=== PATIENT | male | born 1950 | race Caucasian/White ===

== ENCOUNTER 2023-06-19 13:17 | Observation (INO) | payer MEDICARE, MEDICAID, SELFPAY ==
[2023-06-19] VITALS (10 sets, daily range): BP systolic 112–162; BP diastolic 66–92; PULSE 75–87; RESP 14–18; TEMP 36.4–36.9; O2SAT 97–100; BMI 16.6; BMI 19.7
--- NOTE | 2023-06-19 13:28 | XR_ITS ---
FINAL REPORT CLINICAL HISTORY: dyspnea COMPARISON: 08/12/2022 FINDINGS: SINGLE-VIEW CHEST The heart size is normal. The mediastinum is normal. There are mild bibasilar opacities, left greater than right which may represent pneumonia or atelectasis. There is no pneumothorax. IMPRESSION: Bibasilar opacities, may represent pneumonia or atelectasis. Reviewed, Interpreted and Dictated by Jose M Maya III, MD Transcribed by Dariela Forte Authenticated and [facility]
--- NOTE | 2023-06-19 13:29 | HMH.EDGENADL ---
Discharge Plan Disposition Chief Complaint: Recheck/Abnormal Lab/Rx Referrals Follow up/Referrals: Provider,Hannah, [Primary Care Provider] - See instructions Clinical Impressions Clinical Impression: Dysphagia, Dementia Discharge ED Provider: Tawanda Sutherland General Adult HPI General Chief complaint: Recheck/Abnormal Lab/Rx Stated complaint: Unable to swallow Time Seen by Provider: 06/19/23 13:25 History of Present Illness HPI narrative: Patient is a 73-year-old male presenting from [facility] for concern for needing a G-tube. Patient is a new patient to [facility] they know almost nothing about him do not have any significant known past medical history but apparently recently had an upper GI and a swallowing study that the patient demonstrated significant aspiration in need of a G-tube for feeding. Patient was sent to the emergency department for further evaluation. Patient is nonverbal and we cannot obtain history from the patient when we do not have extensive notes on the patient to no past medical history. Related Data Allergies Allergy/AdvReac Type Severity Reaction Status Date / Time gabapentin Allergy Verified 06/19/23 14:15 [facility] Disclaimer: The information contained in this section may have been updated after the patient was seen, as this information can be updated by other users. Social History Smoking Status: Unknown if ever smoked alcohol intake: never current occupational status: other Travel in the last 8 weeks: None ROS Obtained: Yes All systems reviewed & no additional complaints except as documented Physical Exam General General appearance: alert and other Comment: Nonverbal mouth open wide able to look at me slurred speech contracted bilateral upper extremities cachectic in appearance Respiratory Respiratory exam: Absent respiratory distress Cardiovascular Cardiovascular exam: Absent tachycardia Neurological Exam Neurological exam: Present alert and other (Contracted throughout); Absent oriented X3 Medical Decision Making Bob Inquiry Pt receiving controlled substance: No Vital Signs: 06/19/23 13:31 06/19/23 13:30 06/19/23 14:00 Temperature 98.0 F Temperature Source Oral Pulse Rate 75 80 Pulse Rate [Left] 75 Respiratory Rate 16 Blood Pressure 128/83 132/83 Blood Pressure [Right Arm] 128/83 Blood Pressure Mean 94 93 Blood Pressure Mean [Right Arm] 98 02 Sat by Pulse Oximetry 99 99 100 Lab Data Lab results reviewed: Yes I reviewed the patient's lab results. Lab Results 06/19/23 13:20: WBC 5.0, RBC 4.12 L, Hgb 12.7 L, Hct 38.9 L, MCV 94.5 H, MCH 30.9, MCHC 32.7, RDW 12.2, Plt Count 191, MPV 8.8, Neut % (Auto) 63.4, Lymph % (Auto) 27.7, Nance % (Auto) 6.8, Eos % (Auto) 1.8, Baso % (Auto) 0.3, Neut # (Auto) 3.2, Lymph # (Auto) 1.4, Nance # (Auto) 0.3, Eos # (Auto) 0.1, Baso # (Auto) 0.0, Sodium 136, Potassium 4.1, Chloride 92 L, Carbon Dioxide 38 H, Anion Gap 10.1, BUN 11, Creatinine 0.40 L, Estimated Creat Clear 41, Estimated GFR 210, Est GFR ( Amer) 254, Glucose 77, Calcium 8.8, Phosphorus 3.3, Magnesium 1.5 L, Total Bilirubin 0.4, AST 47, ALT 20, Alkaline Phosphatase 71, Total Protein 7.4, Albumin 4.1, Globulin 3.3 H, Albumin/Globulin Ratio 1.2 06/19/23 13:20 06/19/23 13:20 Orders (Tests/Meds): ED MEDICATIONS Discontinued Medications Generic Name Dose Route Start Last Admin Trade Name Freq PRN Reason Stop Dose Admin Lactated Ringer's 1,000 mls @ 999 mls/hr 06/19/23 13:30 06/19/23 14:09 Lactated Ringer's 1000 Ml Bag IV 06/19/23 14:30 999 mls/hr .Q1H1M JUDY Administration ORDERS Category Date Time Status CXR --portable [XR chest portable] Stat Exams 06/19/23 13:28 Taken CBC w/Auto Diff [Complete Blood Count Auto Diff] Stat Lab 06/19/23 13:20 Completed CMP [Comprehensive Metabolic Panel] Stat Lab 06/19/23 13:20 Completed Magnesium Stat Lab 0
[2023-06-19 13:44] LABS: Basophils % 0.3 % (0.1-2.0); Eosinophils # 0.1 K/mm3 (0.0-0.4); Eosinophils % 1.8 % (0.1-12.0); Hematocrit 38.9 % (42.0-52.0); Hemoglobin 12.7 g/dL (14.1-18.0); Lymphocytes # 1.4 K/mm3 (0.7-4.5); Lymphocytes % 27.7 % (10-50); Mean Corpuscular HGB Conc 32.7 g/dL (31.8-35.4); Mean Corpuscular Hemoglobin 30.9 pg (27.0-31.2); Mean Corpuscular Volume 94.5 fl (80-94); Mean Platelet Volume 8.8 fl (7.4-10.4); Monocytes # 0.3 K/mm3 (0.1-1.0); Monocytes % 6.8 % (1.7-9.3); Neutrophils # 3.2 K/mm3 (1.8-7.8); Neutrophils % 63.4 % (37.0-80.0); Platelet Count 191 K/mm3 (142-424); Red Blood Count 4.12 M/mm3 (4.60-6.20); Red Cell Distribution Width 12.2 % (11.5-17.5)
--- NOTE | 2023-06-19 13:45 | ECG_ITS ---
APPROVED REPORT Exam: Resting ECG HR:77 bpm ECG Measurements Heart Rate 77 AXES NH 165 P 64 QRSd 81 QRS 67 QT 351 T 67 QTc 383 Conclusion SINUS RHYTHM NONSPECIFIC T-WAVE ABNORMALITY BORDERLINE ECG UNCONFIRMED REPORT Electronically signed by : Dipesh Cheek MD 06/19/2023 18:31:05
--- NOTE | 2023-06-19 13:45 | PC.NURSE ---
spoke with sunitha from [facility] . she is going to fax medical information about pt.
[2023-06-19 13:49] LABS: Alanine Aminotransferase 20 U/L (12-78); Albumin Level 4.1 g/dl (3.5-5.0); Albumin/Globulin Ratio 1.2 (1.1-1.8); Alkaline Phosphatase 71 U/L (38-126); Anion Gap 10.1 mEq/L (5-15); Aspartate Amino Transferase 47 U/L (17-59); Bilirubin,Total 0.4 mg/dl (0.2-1.3); Blood Urea Nitrogen 11 mg/dl (9-20); Calcium 8.8 mg/dl (8.4-10.2); Carbon Dioxide 38 mmol/L (22.0-30.0); Chloride 92 mmol/L (98-107); Creatinine Clearance Estimated 41 mL/min (50-200); Estimated Glomerular Filt Rate 210 ml/min (>60); GFR (African American) 254 ML/MIN (>60); Globulin 3.3 g/dL (1.3-3.2); Glucose 77 mg/dl (74-100); Magnesium 1.5 mg/dl (1.6-2.3); Phosphorous 3.3 mg/dl (2.5-4.5); Potassium 4.1 mmoL/L (3.5-5.1); Sodium 136 mmol/L (136-145); Total Protein,Serum 7.4 g/dl (6.3-8.2)
--- NOTE | 2023-06-19 13:51 | PC.NURSE ---
Called [facility], medical records are sending records from most recent visit from 03/10/23
--- NOTE | 2023-06-19 13:52 | PC.NURSE ---
Called pt's past [facility]p, [facility], to receive records from his stay there. This includes his recent barium swallow tests.
--- NOTE | 2023-06-19 14:36 | PC.NURSE ---
pt comes into ER with watch, hat, shoes, white t shirt, patterned shirt. pt has black wallet with 80$ in it, all 20$ bills. verified with tabatha driscoll rn.
--- NOTE | 2023-06-19 14:59 | PC.NURSE ---
CARE MANAGEMENT NOTIFIED OF ADMISSION
--- NOTE | 2023-06-19 15:34 | SW/DCPLANNER ---
Addendum entered by Pilar Whitt 06/20/23 09:53: Per Angela (LISY) jordan/ [facility] patient can return back to [facility]/ Hospice services. I will update Chyna ortega/ Hospice. Addendum entered by Pilar Whitt 06/20/23 09:23: Per he has spoke with patient's family and they have requested that patient return back to [facility] w/ Hospice services. Patient information has been faxed to [facility]. I will follow up with Chyna at Hospice once information is reviewed. Patient will discharge back to [facility] today: I have updated Angela ortega/ Kelly. Original Note: Sparkle ortega/ [facility] stated that this patient currently resides at their facility and did confirm that they will accept patient back once medically stable for discharge (even if GTube is placed).
--- NOTE | 2023-06-19 15:41 | PC.NURSE ---
Cleaned patient and changed patient's brief with Janet CASTILLO and readjusted patient in bed. Call estrada within reach of patient.
--- NOTE | 2023-06-19 16:23 | PC.NURSE ---
arrived by stretcher from ED
--- NOTE | 2023-06-19 16:36 | EXP.HP ---
History of Present Illness *Admission Date: 06/19/23 *Reason for visit:: dysphagia *History of present illness: Mr. Okeefe is a 73-year-old male with advanced Parkinson's, dementia, hypertension, seizure disorder. He recently moved to [facility] today from [facility] in [place]. He had been living in his long term for 15 years. Became more more difficult for him to eat and so decision was made to transfer him to [facility] for further care. On arrival to the ER, the ER was informed that patient was transferred for G-tube placement. Patient is nonverbal, unable to give history. ER able to obtain notes from [facility] and [facility] in regard to previous workup. Patient had a failed modified barium swallow study 1 month ago. Labs relatively unremarkable with mild hypomagnesemia. No signs of infection. Medicine was consulted for further management and assistance with goals of care and possible G-tube placement. On arrival to the floor, patient is hemodynamically stable, on room air, afebrile. Unable to obtain significant history. Appears very stiff in bed. Contacted brother who states patient has been in a wheelchair for some time. Living in his long term for about 15 years. Contacted patient's POA (his brother) who is currently in the hospital himself. Discussed patient's current condition with patient's brother and his . Discussed options of feeding tube placement versus possibly hospice. At this time the patient is unable to tolerate p.o. intake. G-tube for nutrition, medications, life-prolonging treatment is one avenue versus comfort, quality, allowing for pleasure feeds and proceeding with hospice would be the second Avenue. Patient's family would like to consider options overnight and we will reconvene in the morning via phone to discuss decision of how to proceed. [facility] Disclaimer: The information contained in this section may have been updated after the patient was seen, as this information can be updated by other users. Medical History (Updated 06/19/23 @ 17:24 by Pravin Gee MD) Affective psychosis Alzheimer disease Developmental delay, mild Diabetes GERD (gastroesophageal reflux disease) Hyperlipemia Hypertensive disorder Hyponatremia Impulse control disorder in adult Mood disorder Surgical History H/O right hemicolectomy History of dental surgery Social History Smoking Status: Unknown if ever smoked alcohol intake: never current occupational status: other Travel in the last 8 weeks: None Review of Systems Review of Systems Review of systems (narrative): 14 point review of systems performed, pertinent positives and negatives as per HPI Meds Home Medications and Allergies Home Medications Medication Instructions Recorded Confirmed Type acetaminophen 325 mg tablet 325 mg PO QID PRN Pain 06/19/23 06/19/23 History ammonium lactate 12 % topical cream 1 applic topical BID skin 06/19/23 06/19/23 History irritation buspirone 10 mg tablet 10 mg PO BID mood 06/19/23 06/19/23 History carbidopa 25 mg-levodopa 100 mg 1 tab PO BID alzheimer's disease 06/19/23 06/19/23 History tablet citalopram 20 mg tablet 20 mg PO DAILY Depression 06/19/23 06/19/23 History divalproex 500 mg tablet,delayed 500 mg PO BID seizure 06/19/23 06/19/23 History release ketoconazole 2 % topical cream 1 applic topical DAILY skin issues 06/19/23 06/19/23 History lisinopril 10 mg tablet 10 mg PO DAILY High Blood Pressure 06/19/23 06/19/23 History memantine 28 mg capsule 28 mg PO DAILY memory 06/19/23 06/19/23 History sprinkle,extended release 24hr olanzapine 10 mg tablet 10 mg PO DAILY mood 06/19/23 06/19/23 History olanzapine 5 mg tablet 5 mg PO DAILY mood 06/19/23 06/19/23 History rivastigmine 13.3 mg/24 hour 1 patch transdermal DAILY dementia
--- NOTE | 2023-06-19 17:33 | XR_ITS ---
PROCEDURE INFORMATION: Exam: XR Chest Exam date and time: 06/19/2023 5:50 PM Age: 73 years old Clinical indication: Device placement; Ng tube; Additional info: Verify ng tube placement TECHNIQUE: Imaging protocol: Radiologic exam of the chest. Views: 1 view. COMPARISON: CR XR CHEST PORTABLE 06/19/2023 1:28 PM FINDINGS: Tubes, catheters and devices: There is an enteric tube place, tip and side port project over the region of the stomach. Lungs: Unremarkable. No consolidation. Pleural spaces: Unremarkable. No pleural effusion. No pneumothorax. Heart/Mediastinum: Unremarkable. No cardiomegaly. Bones/joints: Unremarkable. IMPRESSION: Radiographically appropriate position of enteric tube.
--- NOTE | 2023-06-19 17:39 | PC.NURSE ---
order entered for chest xray to verify placement. awaiting xray results.
--- NOTE | 2023-06-19 18:21 | PC.NURSE ---
Patient admitted from the emergency room. NG placed; no pain reported at this time.
--- NOTE | 2023-06-19 19:00 | PC.NURSE ---
Sailaja Kellogg RN and myself asked patient several times if we could lock his wallet in the blueprint tracer the room but he refused. He currently has it in his right hand while lying the bed.
--- NOTE | 2023-06-19 21:11 | DIET.NUTRFU ---
RD consulted to initiate TF via NG to provide nutrition. Patient unable to take oral intake d/t aspiration risk. Was admitted from [facility] for PEG placement family is deciding on PEG vs hospice. Spoke to [facility], limited hx available. [facility] has Osmolite 1.5 available, will start Osmolite 1.2 to meet nutritional needs of 1700-1800kcal, 75-80gm protein has increased needs d/t skin breakdown and low BMI. Ordered minimal flush, has IVF running for hydration.
[2023-06-19 21:29] LABS: POC Glucose,Bedside 101 (70-110)
[2023-06-20] VITALS: BP 131/80; PULSE 76; RESP 14; TEMP 36.6; O2SAT 98
[2023-06-20 04:00] VITALS: BP 142/87; PULSE 83; RESP 16; TEMP 36.7; O2SAT 99; BMI 20.4
[2023-06-20 05:59] LABS: POC Glucose,Bedside 84 (70-110)
[2023-06-20 07:15] LABS: Basophils % 0.2 % (0.1-2.0); Eosinophils # 0.1 K/mm3 (0.0-0.4); Eosinophils % 2.9 % (0.1-12.0); Hemoglobin 11.7 g/dL (14.1-18.0); Lymphocytes # 1.1 K/mm3 (0.7-4.5); Lymphocytes % 29.2 % (10-50); Mean Corpuscular HGB Conc 32.5 g/dL (31.8-35.4); Mean Corpuscular Hemoglobin 30.5 pg (27.0-31.2); Mean Corpuscular Volume 93.9 fl (80-94); Mean Platelet Volume 8.7 fl (7.4-10.4); Monocytes # 0.3 K/mm3 (0.1-1.0); Neutrophils # 2.2 K/mm3 (1.8-7.8); Neutrophils % 59.8 % (37.0-80.0); Platelet Count 184 K/mm3 (142-424); Red Blood Count 3.84 M/mm3 (4.60-6.20); Red Cell Distribution Width 12.1 % (11.5-17.5); White Blood Count 3.6 K/mm3 (4.8-10.8)
[2023-06-20 07:23] LABS: Chloride 95 mmol/L (98-107); Potassium 4.1 mmoL/L (3.5-5.1); Sodium 134 mmol/L (136-145)
[2023-06-20 07:25] LABS: Alanine Aminotransferase 24 U/L (12-78); Alkaline Phosphatase 64 U/L (38-126); Aspartate Amino Transferase 36 U/L (17-59); Bilirubin,Total 0.7 mg/dl (0.2-1.3); Blood Urea Nitrogen 7 mg/dl (9-20); Creatinine Clearance Estimated 58 mL/min (50-200); Estimated Glomerular Filt Rate 162 ml/min (>60); GFR (African American) 196 ML/MIN (>60)
[2023-06-20 07:26] LABS: Albumin Level 3.2 g/dl (3.5-5.0); Albumin/Globulin Ratio 1.1 (1.1-1.8); Anion Gap 10.1 mEq/L (5-15); Calcium 8.9 mg/dl (8.4-10.2); Carbon Dioxide 33 mmol/L (22.0-30.0); Globulin 2.9 g/dL (1.3-3.2); Glucose 79 mg/dl (74-100); Magnesium 1.5 mg/dl (1.6-2.3); Phosphorous 3.4 mg/dl (2.5-4.5); Total Protein,Serum 6.1 g/dl (6.3-8.2)
[2023-06-20 07:28] LABS: Activated Partial Thrombo Time 34.2 seconds (22.8-30.6); INR 1.05 (0.9-1.1); Prothrombin Time 11.3 seconds (10.1-12.5)
[2023-06-20 07:43] LABS: Hemoglobin A1C 5.1 % (4.0-6.0)
[2023-06-20 07:53] LABS: Thyroid Stimulating Hormone 2.81 uIU/mL (0.465-4.68)
[2023-06-20 08:00] VITALS: BP 134/71; PULSE 87; RESP 20; TEMP 37.3; O2SAT 95; O2SAT 97
--- NOTE | 2023-06-20 08:08 | DIET.NUTRFU ---
Addendum entered by Marta Flynn RD, LD 06/20/23 12:01: Family has decided to sign on with hospice, he will discharge today with comfort feedings as facility feels appropriate Original Note: Spoke with nursing about status of TF. TF has not been started d/t potential for surgical placement of PEG tube today. Will continue to monitor patient's status.
--- NOTE | 2023-06-20 08:14 | HMH.PHAINT1 ---
Pharmacy Intervention Comments: Medication history complete, all medications confirmed with facility list and fill history. - Jayshree Shen, PharmD Candidate 2023
--- NOTE | 2023-06-20 08:14 | EXP.SURG.CON ---
History of Present Illness *Admission Date: 06/19/23 *History of present illness: Unable to obtain history from the patient. History is obtained from the medical record. Mr. Okeefe is a 73-year-old male with advanced Parkinson's, dementia, hypertension, seizure disorder who recently moved to [facility] today from [facility] in [place]. He had been living in his [facility] for 15 years. Became more more difficult for him to eat and so decision was made to transfer him to [facility] for further care. Several hours after arriving at the [facility] he was sent to the emergency department to make arrangements for a PEG tube placement apparently he was evaluated in the emergency department with very limited initial information. On arrival the ER was informed that patient was transferred for G-tube placement. Patient is nonverbal, unable to give history. ER able to obtain notes from [facility] and [facility] in regard to previous workup. Patient had reportedly a failed modified barium swallow study 1 month ago. Medicine was consulted for further management and assistance with goals of care and possible G-tube placement. After additional investigative efforts by the ER staff it became apparent that the patient had been requiring increasing care and administration of food by the staff at his [facility] and therefore was admitted as a resident at [facility]. Shortly thereafter he was sent to the emergency department for gastrostomy tube. Patient was admitted to the hospitalist service. Hospitalist contacted patient's POA (his brother) who is currently in the hospital himself. Discussed patient's current condition with patient's brother and his . Discussed options of feeding tube placement versus possibly hospice. At this time the patient is unable to tolerate p.o. intake. G-tube for nutrition, medications, life-prolonging treatment is one avenue versus comfort, quality, allowing for pleasure feeds and proceeding with hospice would be the second Avenue. Patient's family would like to consider options overnight and we will reconvene in the morning via phone to discuss decision of how to proceed. Patient has apparently previously undergone right hemicolectomy. Previous nature and details and indications of this are unavailable. [facility] Disclaimer: The information contained in this section may have been updated after the patient was seen, as this information can be updated by other users. Medical History Affective psychosis Alzheimer disease Developmental delay, mild Diabetes GERD (gastroesophageal reflux disease) Hyperlipemia Hypertensive disorder Hyponatremia Impulse control disorder in adult Mood disorder Surgical History H/O right hemicolectomy History of dental surgery Family History (Updated 06/19/23 @ 17:58 by Adore May RN) No significant family history Social History (Updated 06/19/23 @ 17:59 by Adore May RN) Smoking Status: Unknown if ever smoked alcohol intake: never current occupational status: other Travel in the last 8 weeks: None Meds Home Medications and Allergies Home Medications Medication Instructions Recorded Confirmed Type acetaminophen 325 mg tablet 325 mg PO QID PRN Pain 06/19/23 06/19/23 History ammonium lactate 12 % topical cream 1 applic topical BID skin 06/19/23 06/19/23 History irritation on feet buspirone 10 mg tablet 10 mg PO BID mood 06/19/23 06/19/23 History carbidopa 25 mg-levodopa 100 mg 1 tab PO BID tremors 06/19/23 06/19/23 History tablet citalopram 20 mg tablet 20 mg PO DAILY Depression 06/19/23 06/19/23 History divalproex 500 mg tablet,delayed 500 mg PO BID mood 06/19/23 06/19/23 History release ketoconazole 2 % topical cream 1 applic topical DAILY PRN skin 06/19/23 08
--- NOTE | 2023-06-20 09:00 | PC.NURSE ---
NG tube removed.
--- NOTE | 2023-06-20 10:09 | EXP.DC.SUM ---
General Admission date:: 06/19/23 Discharge date: 06/20/23 HPI HPI HPI: Unable to obtain history from the patient. History is obtained from the medical record. Mr. Okeefe is a 73-year-old male with advanced Parkinson's, dementia, hypertension, seizure disorder who recently moved to [facility] today from [facility] in [place]. He had been living in his skilled nursing for 15 years. Became more more difficult for him to eat and so decision was made to transfer him to [facility] for further care. Several hours after arriving at the [facility] he was sent to the emergency department to make arrangements for a PEG tube placement apparently he was evaluated in the emergency department with very limited initial information. On arrival the ER was informed that patient was transferred for G-tube placement. Patient is nonverbal, unable to give history. ER able to obtain notes from [facility] and [facility] in regard to previous workup. Patient had reportedly a failed modified barium swallow study 1 month ago. Medicine was consulted for further management and assistance with goals of care and possible G-tube placement. After additional investigative efforts by the ER staff it became apparent that the patient had been requiring increasing care and administration of food by the staff at his skilled nursing and therefore was admitted as a resident at [facility]. Shortly thereafter he was sent to the emergency department for gastrostomy tube. Patient was admitted to the hospitalist service. Hospitalist contacted patient's POA (his brother) who is currently in the hospital himself. Discussed patient's current condition with patient's brother and his . Discussed options of feeding tube placement versus possibly hospice. At this time the patient is unable to tolerate p.o. intake. G-tube for nutrition, medications, life-prolonging treatment is one avenue versus comfort, quality, allowing for pleasure feeds and proceeding with hospice would be the second Avenue. Patient's family would like to consider options overnight and we will reconvene in the morning via phone to discuss decision of how to proceed. Patient has apparently previously undergone right hemicolectomy. Previous nature and details and indications of this are unavailable. Hospital Course Hospital Course Hospital Course: Mr. Okeefe is a 73-year-old male with Parkinson's, dementia, hypertension, who presented to [facility] today for admission from his previous skilled nursing. On arrival, given his failure to pass bedside swallow study and recent failure of modified barium study, he was sent to the ER for placement of G-tube. On arrival to the ER, patient is hemodynamically stable. Labs essentially normal. Noted to have low magnesium that was replaced. ER consulted medicine for admission and goals of care discussion to determine appropriateness for possible G-tube placement. Had extensive discussion with patient's brother who is his legal guardian and [id number]. They discussed the case with other family members overnight and determination was made to not proceed with placement of a G-tube but rather proceed with hospice care and allow treatment to be focused on comfort and quality. Stable for discharge back to [facility] to continue palliative care and allow for feeding. Problems addressed as follows: Dysphagia -Charts obtained from [facility], reviewed showing failure of modified barium study approximately 1 month ago. Surgery was consulted to assist with possible G-tube placement. After further discussion with family, decision made to not pursue G-tube placement. Will proceed with hospice care. Allow for comfort/pleasure feeds. Parkinson's disease Alzheimer's dementia Seizure disorder -Unclear the last time patient had his medications. Resumed home medications for his chronic conditions. Patient's Parkinson's
[2023-06-20 10:53] LABS: POC Glucose,Bedside 98 (70-110)
--- NOTE | 2023-06-20 12:00 | PC.NURSE ---
Report called to oscar ignacio rn at [facility].
--- NOTE | 2023-06-20 12:11 | HMH.PTEV ---
Physical Therapy Evaluation Rehab PT IP Evaluation Start: 06/19/23 17:39 Freq: ONCE Status: Active Protocol: Document 06/20/23 09:00 DELFIN (Rec: 06/20/23 12:11 NICOLÁSREJI [id number]) Subjective/History History History 73 yowm adm to [facility] with dysphagia and poss PEG placement. Decision was made with family to not undergo PEG and to return to SNF with hospice. Pt has hx of severe parkinson's disease with rigidity and tremors. Subjective Subjective Pt with no c/o this am, remains somewhat confused. Rehab PT IP Eval Objective Appearance Patient Behavior Appropriate Patient Orientation Person Difficulty following instructions none Speech Pattern Garbled Ambulation Patient Able to Ambulate No Balance Ability to Arise Able, uses arms to help Sitting Balance Steady, safe Standing Balance Steady, wide stance Dynamic Sitting Balance Ability Fair Dynamic Standing Balance Ability Fair Transfers Bed Transfer Ability Minimal x 1 (25% assist) Chair Transfer Ability Minimal x 1 (25% assist) Sit to Stand Bed Transfer Ability Minimal x 1 (25% assist) Sit to Stand Chair Transfer Ability Minimal x 1 (25% assist) Rehab PT IP prob,goals,plan Problems Date of Evaluation: 06/20/23 Discharge Plan PT Discharge Plan Pt is returning to SNF with hospice and is appropriate to d/c once medically stable. G -code Required No Eval Complexity Eval Charge Codes 77245 - High Complexity PHYSICIAN CERTIFICATION: I certify the specified therapy services for Godfrey Okeefe are required, authorized, and reviewed every 30 days.
--- NOTE | 2023-06-20 12:53 | [facility].OTEV ---
OT Inpatient Evaluation Rehab OT IP Evaluation Start: 06/19/23 17:38 Freq: ONCE Status: Discharge Protocol: Document 06/20/23 12:11 ASHLY (Rec: 06/20/23 12:52 ASHLY [id number]) Rehab OT IP Assessment Subjective History Mr. Okeefe is a 73-year-old male with advanced Parkinson's , dementia, hypertension, seizure disorder. He recently moved to [facility] today from [facility] in [place]. He had been living in his alf for 15 years. Became more more difficult for him to eat and so decision was made to transfer him to [facility] for further care. On arrival to the ER, the ER was informed that patient was transferred for G-tube placement. Patient is nonverbal, unable to give history. ER able to obtain notes from [facility] and [facility] in regard to previous workup. Patient had a failed modified barium swallow study 1 month ago. Labs relatively unremarkable with mild hypomagnesemia. No signs of infection. Medicine was consulted for further management and assistance with goals of care and possible G- tube placement. On arrival to the floor, patient is hemodynamically stable, on room air, afebrile. Unable to obtain significant history. Appears very stiff in bed. Contacted brother who states patient has been in a wheelchair for some time. Living in his alf for about 15 years. Contacted patient's POA (his brother) who is currently in the hospital himself. Discussed patien
[2023-06-21 08:34] LABS: Prealbumin 20 mg/dL (9-32)
== END 2023-06-20 12:46 ==
LOC: ER 14:03 → 2ND 16:25
PROVIDERS: Admitting Provider Internal Medicine Adolescent Medicine; Emergency Provider Student in an Organized Health Care Education/Training Program; PCP Emergency Medicine; Visit Provider Internal Medicine Adolescent Medicine
DX: R13.10 Dysphagia, unspecified (principal); G20 Parkinson's disease; I10 Essential (primary) hypertension; E11.9 Type 2 diabetes mellitus without complications; G30.9 Alzheimer's disease, unspecified; F02.80 Dementia in other diseases classified elsewhere, unspecified severity, without behavioral disturbance, psychotic disturbance, mood disturbance, and anxiety; L89.159 Pressure ulcer of sacral region, unspecified stage; E43 Unspecified severe protein-calorie malnutrition; Z68.20 Body mass index [BMI] 20.0-20.9, adult; Z79.899 Other long term (current) drug therapy
CPT/HCPCS: G0378; 36415; 71045; 80053; 82962; 83036; 83735; 84100; 84134; 84443; 85025; 85610; 85730; 93005; 97163; 97165; 99285; J3475

== ENCOUNTER 2025-02-26 08:21 | Outpatient (CLI) | payer MEDICARE, MEDICAID, SELFPAY ==
[2025-02-26 08:32] LABS: Glucose,Fasting 110 mg/dl (74-100)
== END 2025-02-26 23:59 | disposition home or self-care (01) ==
PROVIDERS: PCP Family Medicine; Visit Provider Family Medicine
DX: E11.9 Type 2 diabetes mellitus without complications (principal)
CPT/HCPCS: 36415; 82947

== ENCOUNTER 2025-03-07 19:51 | Outpatient (CLI) | payer MEDICARE, MEDICAID, SELFPAY ==
[2025-03-07 20:12] LABS: Microscopic, Urine URINE MICROSCOPIC (MICROSCOPIC)
[2025-03-07 20:17] LABS: Appearance,Urine CLEAR (Clear); Bilirubin,Urine Negative (Negative); Blood, Urine TRACE-I (Negative); Color,Urine YELLOW (Yellow); Glucose,Urine (UA) TRACE (Negative); Ketones,Urine Negative (Negative); Leukocyte Esterase,Urine 3+ (Negative); Nitrate,Urine Negative (Negative); PH,Urine 7.5 (5.0-8.5); Protein,Urine Negative (Negative); Specific Gravity, Urine 1.015 (1.005-1.030); Urobilinogen,Urine 0.2 EU/dl (0.2)
[2025-03-07 20:28] LABS: Bacteria,Urine 4+ /lpf
== END 2025-03-07 23:59 | disposition home or self-care (01) ==
LOC: LAB.DROPOF 19:52
PROVIDERS: PCP Nurse Practitioner Family; Visit Provider Nurse Practitioner Family
DX: R10.9 Unspecified abdominal pain (principal); N39.0 Urinary tract infection, site not specified; B95.1 Streptococcus, group B, as the cause of diseases classified elsewhere
CPT/HCPCS: 81001; 87086; 87088; 87186

== ENCOUNTER 2025-03-08 07:45 | Outpatient (CLI) | payer MEDICARE, MEDICAID, SELFPAY ==
[2025-03-08 08:06] LABS: Basophils % 0.4 % (0.1-2.0); Eosinophils # 0.3 Kmm3 (0.0-0.4); Eosinophils % 4.3 % (0.1-12.0); Hematocrit 38.9 % (42.0-52.0); Hemoglobin 13.2 g/dL (14.1-18.0); Lymphocytes # 1.6 K/mm3 (0.7-4.5); Lymphocytes % 24.3 % (10-50); Mean Corpuscular HGB Conc 33.9 g/dL (31.8-35.4); Mean Corpuscular Hemoglobin 29.4 pg (27.0-31.2); Mean Corpuscular Volume 86.6 fl (80-94); Mean Platelet Volume 10.5 fl (7.4-10.4); Monocytes # 0.6 K/mm3 (0.1-1.0); Monocytes % 9.1 % (1.7-9.3); Neutrophils # 4.1 K/mm3 (1.8-7.8); Neutrophils % 61.3 % (37.0-80.0); Nucleated Red Blood Cells # 0 10^3/uL; Nucleated Red Blood Cells % 0 %; Platelet Count 211 K/mm3 (142-424); Red Blood Count 4.49 M/mm3 (4.60-6.20); Red Cell Distribution Width 11.9 % (11.5-17.5); Red Cell Distribution Width-SD 37.9 fL; White Blood Count 6.7 K/mm3 (4.8-10.8)
[2025-03-08 08:23] LABS: Chloride 95 mmol/L (98-107)
[2025-03-08 08:24] LABS: Potassium 4.5 mmoL/L (3.5-5.1); Sodium 132 mmol/L (136-145)
[2025-03-08 08:27] LABS: Anion Gap 13.5 mEq/L (5-15); Blood Urea Nitrogen 5 mg/dl (9-20); Calcium 8.9 mg/dl (8.4-10.2); Carbon Dioxide 28 mmol/L (22.0-30.0); Estimated Glomerular Filt Rate 162 ml/min (>60); GFR (African American) 196 ML/MIN (>60); Glucose 111 mg/dl (74-100)
== END 2025-03-08 23:59 | disposition home or self-care (01) ==
PROVIDERS: PCP Nurse Practitioner Family; Visit Provider Nurse Practitioner Family
DX: Z13.220 Encounter for screening for lipoid disorders (principal); E11.9 Type 2 diabetes mellitus without complications
CPT/HCPCS: 36415; 80048; 85025

== ENCOUNTER 2025-03-31 16:50 | Outpatient (CLI) | payer MEDICARE, MEDICAID, SELFPAY ==
[2025-03-31 17:21] LABS: Microscopic, Urine URINE MICROSCOPIC (MICROSCOPIC)
[2025-03-31 20:18] LABS: Bilirubin,Urine Negative (Negative); Blood, Urine 2+ (Negative); Color,Urine YELLOW (Yellow); Glucose,Urine (UA) TRACE (Negative); Ketones,Urine Negative (Negative); Leukocyte Esterase,Urine 3+ (Negative); Nitrate,Urine POSITIVE (Negative); Protein,Urine 2+ (Negative); Specific Gravity, Urine 1.015 (1.005-1.030); Urobilinogen,Urine 0.2 EU/dl (0.2)
[2025-03-31 20:29] LABS: Appearance,Urine Cloudy (Clear)
[2025-03-31 21:26] LABS: Bacteria,Urine 4+ /lpf; Squamous Epithelial Cell,Urine Occasional #/hpf (0-5); WBC,Urine TNTC #/hpf (0-3)
== END 2025-03-31 23:59 | disposition home or self-care (01) ==
LOC: LAB.DROPOF 16:52
PROVIDERS: PCP Family Medicine; Visit Provider Family Medicine
DX: N39.0 Urinary tract infection, site not specified (principal); B96.20 Unspecified Escherichia coli [E. coli] as the cause of diseases classified elsewhere
CPT/HCPCS: 81001; 87086; 87088; 87186

== ENCOUNTER 2025-04-01 06:02 | Inpatient (IN) | payer MEDICARE, MEDICAID, SELFPAY ==
[2025-04-01] VITALS (12 sets, daily range): BP systolic 98–159; BP diastolic 51–88; PULSE 66–114; RESP 16–27; TEMP 36.6–37.8; O2SAT 2–99; BMI 22.6
--- NOTE | 2025-04-01 06:00 | ECG_ITS ---
APPROVED REPORT Exam: Resting ECG HR:112 bpm ECG Measurements Heart Rate 112 AXES OR 156 P 42 QRSd 77 QRS 45 QT 296 T 56 QTc 362 Conclusion SINUS TACHYCARDIA NONSPECIFIC T-WAVE ABNORMALITY ABNORMAL RHYTHM ECG UNCONFIRMED REPORT Electronically signed by : STEPHANIE GANDHI, 04/04/2025 06:55:35
--- NOTE | 2025-04-01 06:04 | XR_ITS ---
PROCEDURE INFORMATION: Exam: XR Chest Exam date and time: 04/01/2025 6:24 AM Age: 74 years old Clinical indication: Fever; Additional info: Fever, hypoxia TECHNIQUE: Imaging protocol: Radiologic exam of the chest. Views: 1 view. COMPARISON: CR XR CHEST PORTABLE 06/19/2023 5:50 PM FINDINGS: Lungs: There is nonspecific streaking in the left lung base, consistent with atelectasis or pneumonia. Pleural spaces: There are no pleural effusions present. Heart/Mediastinum: Unremarkable. No cardiomegaly. Vasculature: The vasculature demonstrates diffuse moderate atherosclerotic calcification. There is no vascular redistribution to suggest congestive failure. Bones/joints: Moderate degenerative changes are seen in both shoulders. There is dense calcification of the left coracoclavicular ligament. No dislocation of the left AC joint is observed. A right convex spinal curve is observed.The spine demonstrates moderate degenerative changes at multiple levels. IMPRESSION: 1. There is nonspecific streaking in the left lung base, consistent with atelectasis or pneumonia. 2. There are no pleural effusions present. 3. There is no vascular redistribution to suggest congestive failure.
[2025-04-01 06:16] LABS: VBG HCO3 24.6 mmol/L (23-30); VBG Oxygen Saturation 97.3 % (50-70); VBG PCO2 34.2 mmol/L (35-51); VBG PH 7.48 mmol/L (7.31-7.41); VBG PO2 86.7 mmol/L (28-40); VBG Total CO2 25.7 mmol/L (23-27)
[2025-04-01 06:22] LABS: Alanine Aminotransferase 17 U/L (12-78); Albumin Level 4.2 g/dl (3.5-5.0); Albumin/Globulin Ratio 1.2 (1.1-1.8); Alkaline Phosphatase 60 U/L (38-126); Anion Gap 12.9 mEq/L (5-15); Aspartate Amino Transferase 30 U/L (17-59); Bilirubin,Total 0.9 mg/dl (0.2-1.3); Blood Urea Nitrogen 14 mg/dl (9-20); Calcium 8.4 mg/dl (8.4-10.2); Carbon Dioxide 29 mmol/L (22.0-30.0); Chloride 94 mmol/L (98-107); Creatinine Clearance Estimated 64 mL/min (50-200); Estimated Glomerular Filt Rate 110 ml/min (>60); GFR (African American) 133 ML/MIN (>60); Globulin 3.6 g/dL (1.3-3.2); Glucose 183 mg/dl (74-100); Magnesium 1.8 mg/dl (1.6-2.3); Potassium 3.9 mmoL/L (3.5-5.1); Sodium 132 mmol/L (136-145); Total Protein,Serum 7.8 g/dl (6.3-8.2)
[2025-04-01 06:25] LABS: Basophils # 0.1 K/mm3 (0-0.2); Basophils % 0.4 % (0.1-2.0); Eosinophils # 0.1 Kmm3 (0.0-0.4); Eosinophils % 0.6 % (0.1-12.0); Hematocrit 36.8 % (42.0-52.0); Hemoglobin 12.6 g/dL (14.1-18.0); Immature Granulocytes # 0.09 10^3uL; Immature Granulocytes % 0.7 %; Lymphocytes # 1.5 K/mm3 (0.7-4.5); Lymphocytes % 11.7 % (10-50); Mean Corpuscular HGB Conc 34.2 g/dL (31.8-35.4); Mean Corpuscular Hemoglobin 29.6 pg (27.0-31.2); Mean Corpuscular Volume 86.6 fl (80-94); Mean Platelet Volume 10.1 fl (7.4-10.4); Monocytes # 1.3 K/mm3 (0.1-1.0); Monocytes % 9.9 % (1.7-9.3); Neutrophils # 10.1 K/mm3 (1.8-7.8); Neutrophils % 76.7 % (37.0-80.0); Nucleated Red Blood Cells # 0 10^3/uL; Nucleated Red Blood Cells % 0 %; Platelet Count 212 K/mm3 (142-424); Red Blood Count 4.25 M/mm3 (4.60-6.20); Red Cell Distribution Width 11.9 % (11.5-17.5); Red Cell Distribution Width-SD 38.1 fL; White Blood Count 13.2 K/mm3 (4.8-10.8)
[2025-04-01 06:26] LABS: Coronavirus 19, PCR Not Detected (NotDetected); Influenza A, PCR Not Detected (NotDetected); Influenza B, PCR Not Detected (NotDetected)
[2025-04-01 06:29] LABS: D-Dimer 1.11 ug/mL (0.0-0.5)
--- NOTE | 2025-04-01 06:29 | ED_ITS ---
Discharge Plan Disposition Patient Disposition: Admitted Condition: Fair Chief Complaint: Fever Prescriptions Prescriptions: No Action fluvoxamine 50 mg tablet 50 mg PO DAILY lisinopril 5 mg tablet 5 mg PO DAILY Qty: 30 2RF acetaminophen [Acetaminophen Extra Strength] 500 mg tablet 500 mg PO Q6H PRN (Reason: fever or pain) lactulose 10 gram/15 mL solution 20 g PO DAILY PRN (Reason: Constipation) ondansetron HCl 4 mg tablet 4 mg PO Q6H PRN (Reason: nausea and vomiting) ketotifen fumarate 0.025 % (0.035 %) drops 1 drp ophthalmic (eye) BID Rx Instructions: Instill 1 drop into affected eye twice a day. loratadine [Claritin] 10 mg tablet 10 mg PO DAILY melatonin 3 mg tablet 3 mg PO HS divalproex [Depakote Sprinkles] 125 mg capsule, delayed rel sprinkle 500 mg PO BID Qty: 120 11RF olanzapine 5 mg tablet 5 mg PO HS clonazepam 0.5 mg tablet 0.5 mg PO HS Qty: 30 5RF Rx Instructions: administer 30 minutes before bedtime carbidopa-levodopa 25-100 mg tablet 1 tab PO BID sennosides 8.6 mg tablet 8.6 mg PO DAILY trazodone 150 mg Tablet 150 mg PO DAILY Rx Instructions: Give at 9pm Acid Gone Antacid 95-358 mg/15 mL suspension 30 ml PO NEEDED PRN (Reason: Acid Reflux) Referrals Follow up/Referrals: Provider,ReferralMD [Primary Care Provider] - See instructions Clinical Impressions Clinical Impression: AMS (altered mental status), Sepsis, Acute UTI, Pneumonia Print Language Print Language: German Discharge ED Provider: Irineo Adams Adult HPI <Deandre Longo MD - Last Filed: 04/01/25 06:51> General Chief complaint: Fever Stated complaint: Weakness Time Seen by Provider: 04/01/25 06:04 Mode of Arrival: EMS Source of Information: EMS Description of Symptoms (Recalled from ER Triage Doc. by RN): Per [facility] staff patient has been altered for the last couple days with a low grade fever and decreased appetite and fluid intake. [facility] states they sent a urine specimen to this facility yesterday for suspicion of UTI. History of Present Illness HPI narrative: 74-year-old male with reported history of Alzheimer disease, Parkinson's, diabetes, Psychotic disorder presents for fever, hypoxia, altered mental status. Patient had a temperature of 100.4 at the nursing facility and was noted to have decreased appetite and fluid intake. Not been acting self for the last couple of days. [facility] sent to urine yesterday but they are not sure of the results. Unclear what patient's baseline mental status is. Related Data Home Medications ?Medication ?Instructions ?Recorded ?Confirmed carbidopa 25 mg-levodopa 100 mg 1 tab PO BID tremors 06/19/23 04/01/25 tablet acetaminophen 500 mg tablet 500 mg PO Q6H PRN fever or pain 10/16/23 04/01/25 (Acetaminophen Extra Strength) ketotifen fumarate 0.025 % (0.035 1 drp ophthalmic (eye) BID 10/16/23 04/01/25 %) eye drops lactulose 10 gram/15 mL oral 20 g PO DAILY PRN Constipation 10/16/23 04/01/25 solution loratadine 10 mg tablet (Claritin) 10 mg PO DAILY 10/16/23 04/01/25 melatonin 3 mg tablet 3 mg PO HS 10/16/23 04/01/25 ondansetron HCl 4 mg tablet 4 mg PO Q6H PRN nausea and vomiting 10/16/23 04/01/25 fluvoxamine 50 mg tablet 50 mg PO DAILY 11/17/24 04/01/25 olanzapine 5 mg tablet 5 mg PO HS mood 11/17/24 04/01/25 aluminum hydrox-magnesium carb 95 30 ml PO NEEDED PRN Acid Reflux 04/01/25 04/01/25 mg-358 mg/15 mL oral suspension (Acid Gone Antacid) sennosides 8.6 mg tablet 8.6 mg PO DAILY 04/01/25 04/01/25 trazodone 150 mg tablet 150 mg PO DAILY 04/01/25 04/01/25 Previous Rx's ?Medication ?Instructions ?Recorded divalproex 125 mg capsule,delayed 500 mg (4 x 125 mg) PO BID #120 02/04/24 release sprinkle (Depakote caps Sprinkles) lisinopril 5 mg tablet 5 mg PO DAILY #30 tabs 12/26/24 clonazepam 0.5 mg tablet 0.5 mg PO HS #30 tabs 02/22/25 Allergies Allergy/AdvReac Type Severity Reaction Status Date / Time gabapentin Allergy Verified 03/10/25 21:17 [facility] <Deandre Longo MD - Last Filed: 04/01/25 06:51> [facility] Disclaimer: The information contained in this section may have been updated after the patient was seen, as this information can be updated by other users. Medical History Severe protein-calorie malnutrition Iron deficiency anemia Sacral decubitus ulcer Impulse control disorder in adult Hypertensive disorder Hyponatremia Hyperlipemia GERD (gastroesophageal reflux disease) Affective psychosis Diabetes Alzheimer disease Mood disorder Surgical History History of dental surgery H/O right hemicolectomy Family History Other No significant family history Social History Smoking Status: Never smoker alcohol intake: never current occupational status: other Travel in the last 8 weeks?: None Have you lived/traveled outside [place] in past 30 days?: No Contact w/someone who lives/traveled outside US past 30 days?: No Exposure to someone with infectious disease in past 14 days?: No Do you have a fever (greater than 100.4 F or 38 C)?: No Have you tested positive for COVID-19?: No Exposed to someone with COVID-19 in past 14 days?: No Do you have a sore throat?: No Do you have a cough?: No Do you have any weakness?: Yes Do you have any diarrhea?: No Are you experiencing any unusual bleeding?: No Do you have any muscle aches/pain?: No Do you have any abdominal pain?: No Are you experiencing loss of taste or smell?: No Other Medical History Have you received the Flu Vaccine for this season: No Have you received the Pneumonia Vaccine: No <Deandre Longo MD - Last Filed: 04/01/25 06:51> ROS Obtained: Yes unobtainable due to mental status Physical Exam <Deandre Longo MD - Last Filed: 04/01/25 06:51> General General appearance: in no apparent distress Comment: decreased interactiveness Head Head exam: atraumatic and normocephalic Eye Eye exam: Present normal appearance, PERRL and EOMI ENT ENT exam: Present mucous membranes dry and normal external ear exam Neck Neck exam: Present normal inspection and full ROM Chest Chest inspection: Present normal inspection and symmetric chest wall rise; Absent tenderness Respiratory Respiratory exam: Present normal lung sounds bilaterally; Absent respiratory distress Cardiovascular Cardiovascular exam: Present normal rhythm and tachycardia Abdominal Exam Abdominal exam: Present soft and distention; Absent tenderness or guarding Extremities Exam Extremities exam: Present normal inspection; Absent edema or joint swelling Back Exam Back exam: Absent tenderness Neurological Exam Neurological exam: Present other (GCS 10) Psychiatric Psychiatric exam: Present flat affect Skin Skin exam: Present warm, dry and normal color Lymphatic Lymphatic Findings: no adenopathy Medical Decision Making <Deandre Longo MD - Last Filed: 04/01/25 06:51> Medical Records Medical records reviewed: Yes I reviewed the patient's medical records. Screening: Per USPSTF and CDC recommendations, given the prevalence of disease in our region, it is our hospital?s policy to screen for HIV and viral Hepatitis for all patients aged 18 and over and those with ongoing risk factors. Bob Inquiry Pt receiving controlled substance: No Bob was queried for this patient: No Vital Signs: 04/01/25 05:59 04/01/25 06:20 04/01/25 06:31 Temperature 100.1 F H Temperature Source Temporal Artery Scan Temporal Artery Scan Pulse Rate 109 H Pulse Rate [Left] 114 H Respiratory Rate 18 27 H Blood Pressure 143/66 H Blood Pressure [Right Arm] 131/78 Blood Pressure Mean [Right Arm] 95 Blood Pressure Source [Right Arm] Automatic Cuff Blood Pressure Position [Right Arm] Supine 02 Sat by Pulse Oximetry 96 92 L Oxygen Delivery Method Room Air 04/01/25 07:20 04/01/25 07:30 Temperature Temperature Source Pulse Rate 105 H 93 H Pulse Rate [Left] Respiratory Rate 23 20 Blood Pressure 139/86 146/78 H Blood Pressure [Right Arm] Blood Pressure Mean [Right Arm] Blood Pressure Source [Right Arm] Blood Pressure Position [Right Arm] 02 Sat by Pulse Oximetry 94 L 98 Oxygen Delivery Method Nasal Cannula Nasal Cannula Lab Data Lab results reviewed: Yes I reviewed the patient's lab results. Lab Results 04/01/25 05:44: WBC 13.2 H, RBC 4.25 L, Hgb 12.6 L, Hct 36.8 L, MCV 86.6, MCH 29.6, MCHC 34.2, RDW 11.9, Plt Count 212, MPV 10.1, Neut % (Auto) 76.7, Lymph % (Auto) 11.7, Mora % (Auto) 9.9 H, Eos % (Auto) 0.6, Baso % (Auto) 0.4, Neut # (Auto) 10.1 H, Lymph # (Auto) 1.5, Mora # (Auto) 1.3 H, Eos # (Auto) 0.1, Baso # (Auto) 0.1, D-Dimer 1.11 H, Sodium 132 L, Potassium 3.9, Chloride 94 L, Carbon Dioxide 29, Anion Gap 12.9, BUN 14, Creatinine 0.70, Estimated Creat Clear 64, Estimated GFR 110, Est GFR ( Amer) 133, Glucose 183 H, Calcium 8.4, Magnesium 1.8, Total Bilirubin 0.9, AST 30, ALT 17, Alkaline Phosphatase 60, NT-Pro-B Natriuret Pep 235, Total Protein 7.8 D, Albumin 4.2, Globulin 3.6 H, Albumin/Globulin Ratio 1.2, TSH 3.12 04/01/25 06:12: VBG pH 7.48 H, VBG pCO2 34.2 L, VBG pO2 86.7 H, VBG HCO3 24.6, VBG Total CO2 25.7, VBG O2 Saturation 97.3 H, VBG Base Excess 1.0, VBG Lactic Acid 2.0 04/01/25 06:22: SARS-CoV-2 (PCR) Not detected, Influenza A Untype (PCR) Not detected, Influenza Type B (PCR) Not detected 04/01/25 06:40: Urine Color Yellow, Urine Appearance Cloudy, Urine pH 6.0, Ur Specific Horatio 1.020, Urine Protein 2+ A, Urine Glucose (UA) Negative, Urine Ketones 1+, Urine Blood 3+ A, Urine Nitrate Positive A, Urine Bilirubin Negative, Urine Urobilinogen 1.0, Ur Leukocyte Esterase 2+ A, Urine RBC Tntc, Urine WBC Tntc, Ur Squamous Epith Cells None, Amorphous Sediment Trace, Urine Bacteria 3+ 04/01/25 05:44 04/01/25 05:44 Orders (Tests/Meds): ED MEDICATIONS Generic Name Dose Route Start Last Admin Trade Name Freq PRN Reason Stop Dose Admin Lactated Ringer's 1,000 mls @ 999 mls/hr 04/01/25 07:51 Lactated Ringer's 1000 Ml Bag IV 04/01/25 08:51 .Q1H1M ONE Sodium Phosphate 133 ml 04/01/25 08:16 04/01/25 08:32 Sodium Phos/Biphosphate Fleet 133ml Enema RC 04/01/25 08:17 133 ml ONCE ONE Administration Discontinued Medications Generic Name Dose Route Start Last Admin Trade Name Freq PRN Reason Stop Dose Admin Acetaminophen 1,000 mg 04/01/25 07:05 04/01/25 07:22 Acetaminophen 1,000mg/100ml Vial IV 04/01/25 07:06 1,000 mg ONCE ONE Administration Lactated Ringer's 1,000 mls @ 999 mls/hr 04/01/25 06:15 04/01/25 06:45 Lactated Ringer's 1000 Ml Bag IV 04/01/25 07:15 999 mls/hr .Q1H1M JUDY Administration Piperacillin Sod/Tazobactam 100 mls @ 200 mls/hr 04/01/25 06:08 04/01/25 06:46 Sod 4.5 gm/ Sodium Chloride IV 04/01/25 06:37 200 mls/hr ONCE ONE Administration Vancomycin/PEG/NADA/Lysine/Water 1.5 gm in 300 mls @ 150 mls/hr 04/01/25 06:30 04/01/25 06:46 Vancomycin 1.5gm/300ml (Peg) Premix IV 04/01/25 08:29 150 mls/hr ONCE ONE Administration Iopamidol 80 ml 04/01/25 07:26 04/01/25 07:28 Iopamidol-370 (76%);100ml Bottle IV 04/01/25 07:27 80 ml ONCE ONE Administration Miscellaneous 1 each 04/01/25 06:15 Vancomycin Consult Request NOTAPPLIC 05/01/25 06:14 CONSULT PHARMACY JUDY Sodium Chloride 10 ml 04/01/25 07:26 04/01/25 07:28 Sodium Chloride 0.9% 10ml Syr (Rad Only) IV 04/01/25 07:27 10 ml ONCE ONE Administration Sodium Chloride 50 ml 04/01/25 07:26 04/01/25 07:28 0.9 % Sodium Chloride 50 Ml Vial IV 04/01/25 07:27 50 ml ONCE ONE Administration ORDERS Category Date Time Status CT abdomen pelvis w con Stat Cat Scan 04/01/25 06:[address] angio chest PE protocol Stat Cat Scan 04/01/25 06:[address] head/brain wo con Stat Cat Scan 04/01/25 06:34 Completed CXR --portable [XR chest portable] Stat Exams 04/01/25 06:04 Completed BNP [NT Pro Brain Natriuretic Pep.] Stat Lab 04/01/25 05:44 Completed CBC w/Auto Diff [Complete Blood Count Auto Diff] Stat Lab 04/01/25 05:44 Completed CMP [Comprehensive Metabolic Panel] Stat Lab 04/01/25 05:44 Completed D-Dimer Stat Lab 04/01/25 05:44 Completed Lactate Venous Stat Lab 04/01/25 06:22 Ordered Magnesium Stat Lab 04/01/25 05:44 Completed Rapid PCR Covid and Flu A/B Stat Lab 04/01/25 06:22 Completed TSH [Thyroid Stimulating Hormone] Stat Lab 04/01/25 05:44 Completed UA [Urinalysis and Microscopic] Stat Lab 04/01/25 06:40 Completed Blood Culture Stat Micro 04/01/25 06:22 Received Urine Culture Stat Micro 04/01/25 06:40 Received VBG [Venous Blood Gas] Stat RT 04/01/25 06:12 Completed ECG Data Tracing #1: I reviewed this ECG and interpreted as documented below: Sinus tachycardia, rate of 112, normal intervals, no significant ischemia ECG initial impression date: 04/01/25 ECG initial impression time: 06:00 Tissue Perfus/Sepsis Re-Eval Sepsis Re-Evaluation Performed: Yes Date Performed: 04/01/25 Time Performed: 06:50 Medical Decision Narrative: 74-year-old male with history of Alzheimer's, Parkinson's, diabetes, psychotic disorder presents with altered mental status, hypoxia, tachycardia, fever. History was obtained via interactive discussion with patient, EMS, chart review. On arrival, patient is afebrile but temp of 100.1, tachycardic, normotensive, satting mid 90s on 2 L nasal cannula with EMS, moving all extremities spontaneously. Full physical exam performed and significant for GCS 10, patient moans to painful stimuli. Lungs are clear to auscultation Differential includes but is not limited to pneumonia, UTI, bacteremia, PE, intracranial pathology, kidney stone. Patient was given 1 L IV fluid bolus, vancomycin, Zosyn for empiric coverage of sepsis. Additional fluid was not given initially due to unknown fluid status. Workup initiated including CBC CMP BNP D-dimer VBG EKG UA chest x-ray. On re-evaluation, patient remains altered and tachycardic. Satting low 90s on room air. Laboratory workup independently interpreted by me and significant for Urine results from urine that was sent yesterday show too numerous to count WBCs and 4+ bacteria with positive nitrates indicating a likely urinary source. Urine from today not yet back. VBG shows mixed alkalosis, patient has a leukocytosis with white count of 13, mild hyponatremia.. Imaging independently interpreted by me and significant for chest x-ray without focal opacity, does have colon distended with gas noted.. See radiology read for full review of final results. CT imaging of the head, CT PE, CT abdomen pelvis was ordered to assess for altered mental status, possible PE in the setting of positive dimer, possible septic stone. At this time care handed off to oncoming physician. <Irineo Adams MD - Last Filed: 04/01/25 08:37> Vital Signs: 04/01/25 05:59 04/01/25 06:20 04/01/25 06:31 Temperature 100.1 F H Temperature Source Temporal Artery Scan Temporal Artery Scan Pulse Rate 109 H Pulse Rate [Left] 114 H Respiratory Rate 18 27 H Blood Pressure 143/66 H Blood Pressure [Right Arm] 131/78 Blood Pressure Mean [Right Arm] 95 Blood Pressure Source [Right Arm] Automatic Cuff Blood Pressure Position [Right Arm] Supine 02 Sat by Pulse Oximetry 96 92 L Oxygen Delivery Method Room Air 04/01/25 07:20 04/01/25 07:30 Temperature Temperature Source Pulse Rate 105 H 93 H Pulse Rate [Left] Respiratory Rate 23 20 Blood Pressure 139/86 146/78 H Blood Pressure [Right Arm] Blood Pressure Mean [Right Arm] Blood Pressure Source [Right Arm] Blood Pressure Position [Right Arm] 02 Sat by Pulse Oximetry 94 L 98 Oxygen Delivery Method Nasal Cannula Nasal Cannula Lab Data Lab Results 04/01/25 05:44: WBC 13.2 H, RBC 4.25 L, Hgb 12.6 L, Hct 36.8 L, MCV 86.6, MCH 29.6, MCHC 34.2, RDW 11.9, Plt Count 212, MPV 10.1, Neut % (Auto) 76.7, Lymph % (Auto) 11.7, Mora % (Auto) 9.9 H, Eos % (Auto) 0.6, Baso % (Auto) 0.4, Neut # (Auto) 10.1 H, Lymph # (Auto) 1.5, Mora # (Auto) 1.3 H, Eos # (Auto) 0.1, Baso # (Auto) 0.1, D-Dimer 1.11 H, Sodium 132 L, Potassium 3.9, Chloride 94 L, Carbon Dioxide 29, Anion Gap 12.9, BUN 14, Creatinine 0.70, Estimated Creat Clear 64, Estimated GFR 110, Est GFR ( Amer) 133, Glucose 183 H, Calcium 8.4, Magnesium 1.8, Total Bilirubin 0.9, AST 30, ALT 17, Alkaline Phosphatase 60, NT-Pro-B Natriuret Pep 235, Total Protein 7.8 D, Albumin 4.2, Globulin 3.6 H, Albumin/Globulin Ratio 1.2, TSH 3.12 04/01/25 06:12: VBG pH 7.48 H, VBG pCO2 34.2 L, VBG pO2 86.7 H, VBG HCO3 24.6, VBG Total CO2 25.7, VBG O2 Saturation 97.3 H, VBG Base Excess 1.0, VBG Lactic Acid 2.0 04/01/25 06:22: SARS-CoV-2 (PCR) Not detected, Influenza A Untype (PCR) Not detected, Influenza Type B (PCR) Not detected 04/01/25 06:40: Urine Color Yellow, Urine Appearance Cloudy, Urine pH 6.0, Ur Specific Horatio 1.020, Urine Protein 2+ A, Urine Glucose (UA) Negative, Urine Ketones 1+, Urine Blood 3+ A, Urine Nitrate Positive A, Urine Bilirubin Negative, Urine Urobilinogen 1.0, Ur Leukocyte Esterase 2+ A, Urine RBC Tntc, Urine WBC Tntc, Ur Squamous Epith Cells None, Amorphous Sediment Trace, Urine Bacteria 3+ Orders (Tests/Meds): ED MEDICATIONS Generic Name Dose Route Start Last Admin Trade Name Freq PRN Reason Stop Dose Admin Lactated Ringer's 1,000 mls @ 999 mls/hr 04/01/25 07:51 Lactated Ringer's 1000 Ml Bag IV 04/01/25 08:51 .Q1H1M ONE Sodium Phosphate 133 ml 04/01/25 08:16 04/01/25 08:32 Sodium Phos/Biphosphate Fleet 133ml Enema RC 04/01/25 08:17 133 ml ONCE ONE Administration Discontinued Medications Generic Name Dose Route Start Last Admin Trade Name Wil PRN Reason Stop Dose Admin Acetaminophen 1,000 mg 04/01/25 07:05 04/01/25 07:22 Acetaminophen 1,000mg/100ml Vial IV 04/01/25 07:06 1,000 mg ONCE ONE Administration Lactated Ringer's 1,000 mls @ 999 mls/hr 04/01/25 06:15 04/01/25 06:45 Lactated Ringer's 1000 Ml Bag IV 04/01/25 07:15 999 mls/hr .Q1H1M JUDY Administration Piperacillin Sod/Tazobactam 100 mls @ 200 mls/hr 04/01/25 06:08 04/01/25 06:46 Sod 4.5 gm/ Sodium Chloride IV 04/01/25 06:37 200 mls/hr ONCE ONE Administration Vancomycin/PEG/NADA/Lysine/Water 1.5 gm in 300 mls @ 150 mls/hr 04/01/25 06:30 04/01/25 06:46 Vancomycin 1.5gm/300ml (Peg) Premix IV 04/01/25 08:29 150 mls/hr ONCE ONE Administration Iopamidol 80 ml 04/01/25 07:26 04/01/25 07:28 Iopamidol-370 (76%);100ml Bottle IV 04/01/25 07:27 80 ml ONCE ONE Administration Miscellaneous 1 each 04/01/25 06:15 Vancomycin Consult Request NOTAPPLIC 05/01/25 06:14 CONSULT PHARMACY JUDY Sodium Chloride 10 ml 04/01/25 07:26 04/01/25 07:28 Sodium Chloride 0.9% 10ml Syr (Rad Only) IV 04/01/25 07:27 10 ml ONCE ONE Administration Sodium Chloride 50 ml 04/01/25 07:26 04/01/25 07:28 0.9 % Sodium Chloride 50 Ml Vial IV 04/01/25 07:27 50 ml ONCE ONE Administration ORDERS Category Date Time Status CT abdomen pelvis w con Stat Cat Scan 04/01/25 06:[address] angio chest PE protocol Stat Cat Scan 04/01/25 06:[address] head/brain wo con Stat Cat Scan 04/01/25 06:34 Completed CXR --portable [XR chest portable] Stat Exams 04/01/25 06:04 Completed BNP [NT Pro Brain Natriuretic Pep.] Stat Lab 04/01/25 05:44 Completed CBC w/Auto Diff [Complete Blood Count Auto Diff] Stat Lab 04/01/25 05:44 Completed CMP [Comprehensive Metabolic Panel] Stat Lab 04/01/25 05:44 Completed D-Dimer Stat Lab 04/01/25 05:44 Completed Lactate Venous Stat Lab 04/01/25 06:22 Ordered Magnesium Stat Lab 04/01/25 05:44 Completed Rapid PCR Covid and Flu A/B Stat Lab 04/01/25 06:22 Completed TSH [Thyroid Stimulating Hormone] Stat Lab 04/01/25 05:44 Completed UA [Urinalysis and Microscopic] Stat Lab 04/01/25 06:40 Completed Blood Culture Stat Micro 04/01/25 06:22 Received Urine Culture Stat Micro 04/01/25 06:40 Received VBG [Venous Blood Gas] Stat RT 04/01/25 06:12 Completed Medical Decision Narrative: 74-year-old male with history of Alzheimer's, Parkinson's, diabetes, psychotic disorder presents with altered mental status, hypoxia, tachycardia, fever. History was obtained via interactive discussion with patient, EMS, chart review. On arrival, patient is afebrile but temp of 100.1, tachycardic, normotensive, satting mid 90s on 2 L nasal cannula with EMS, moving all extremities spontaneously. Full physical exam performed and significant for GCS 10, patient moans to painful stimuli. Lungs are clear to auscultation Differential includes but is not limited to pneumonia, UTI, bacteremia, PE, intracranial pathology, kidney stone. Patient was given 1 L IV fluid bolus, vancomycin, Zosyn for empiric coverage of sepsis. Additional fluid was not given initially due to unknown fluid status. Workup initiated including CBC CMP BNP D-dimer VBG EKG UA chest x-ray. On re-evaluation, patient remains altered and tachycardic. Satting low 90s on room air. Laboratory workup independently interpreted by me and significant for Urine results from urine that was sent yesterday show too numerous to count WBCs and 4+ bacteria with positive nitrates indicating a likely urinary source. Urine from today not yet back. VBG shows mixed alkalosis, patient has a leukocytosis with white count of 13, mild hyponatremia.. Imaging independently interpreted by me and significant for chest x-ray without focal opacity, does have colon distended with gas noted.. See radiology read for full review of final results. CT imaging of the head, CT PE, CT abdomen pelvis was ordered to assess for altered mental status, possible PE in the setting of positive dimer, possible septic stone. At this time care handed off to oncoming physician. I, Irineo Adams MD, accepted care of this patient at 0700. I independently interpreted the CT head to demonstrate no acute intracranial abnormality with appropriate significant volume loss. CTA PE demonstrates no PE, but pneumonia in the left lung base, already appropriately treated with broad-spectrum antibiotics from previous provider. Will continue fluid resuscitation as well as Tylenol for fever. CT abdomen demonstrates likely ileus with significant constipation distally. Will administer enema. Sylvester reasonable to consult with the hospitalist team to admit for sepsis altered mental status pyelonephritis and pneumonia. To Dr. Gee. Had an interactive discussion with them and ultimately they agreed admit the patient to the service of further workup or definitive management will be transferred in hemodynamically stable condition Procedures <Deandre Longo MD - Last Filed: 04/01/25 06:51> Risk/Benefits of Procedure(s) Were Explained: Yes Critical Care <Deandre Longo MD - Last Filed: 04/01/25 06:51> Critical Care Time Critical Care Time: No
[2025-04-01 06:31] LABS: NT Pro Brain Natriuretic Pep. 235 pg/mL (0-450)
--- NOTE | 2025-04-01 06:34 | CT_ITS ---
FINAL REPORT TECHNIQUE: Thin section axial CT with contrast with multiplanar reconstruction This study was performed with techniques to keep radiation doses as low as reasonably achievable, (ALARA). Individualized dose reduction techniques using automated exposure control or adjustment of mA and/or kV according to the patient''s size were employed. CLINICAL HISTORY: hypoxia, tachy, positive dimer COMPARISON: none FINDINGS: Pulmonary vessels enhance in normal fashion without evidence of embolism. Thoracic aorta shows no dissection or aneurysm. There is a left lower lobe consolidation compatible with pneumonia. Mild dependent atelectasis is noted in the right lung. There is no significant pleural effusion. There is no significant pericardial effusion. No mediastinal or hilar adenopathy is present. IMPRESSION: No evidence of pulmonary embolism. Left lower lobe pneumonia. Reviewed, Interpreted and Dictated by Rachelle Dorantes MD Transcribed by Claudine Will Authenticated and [facility]
--- NOTE | 2025-04-01 06:34 | CT_ITS ---
FINAL REPORT TECHNIQUE: IV contrast enhanced exam This study was performed with techniques to keep radiation doses as low as reasonably achievable, (ALARA). Individualized dose reduction techniques using automated exposure control or adjustment of mA and/or kV according to the patient''s size were employed. CLINICAL HISTORY: fever, ams FINDINGS: Abdomen: No acute density is seen within the lung bases. The gallbladder is unremarkable. Bilateral renal cysts are notified. There is no evidence of urinary tract obstruction. The remaining solid abdominal organs are unremarkable. No bowel obstruction is present. There is no free air. No fluid collection is seen. There is no adenopathy. Pelvis: The appendix is not visualized, presumably surgically absent. There is gaseous distention of the sigmoid colon measuring up to 9 cm. There is mild fecal impaction of the rectal vault. There is bladder wall thickening with Reza catheter. There is no free fluid. No pelvic mass is seen. IMPRESSION: No bowel obstruction or free air. No evidence of abscess. Moderate distention of the rectosigmoid colon. Reviewed, Interpreted and Dictated by Rachelle Dorantes MD Transcribed by Dariela Forte Authenticated and [facility]
--- NOTE | 2025-04-01 06:34 | CT_ITS ---
PROCEDURE INFORMATION: Exam: CT Head Without Contrast Exam date and time: 04/01/2025 7:04 AM Age: 74 years old Clinical indication: Altered mental status/memory loss; Additional info: AMS TECHNIQUE: Imaging protocol: Computed tomography of the head without contrast. Radiation optimization: All CT scans at this facility use at least one of these dose optimization techniques: automated exposure control; mA and/or kV adjustment per patient size (includes targeted exams where dose is matched to clinical indication); or iterative reconstruction. COMPARISON: No relevant prior studies available. FINDINGS: Brain: There is moderate atrophy and chronic white matter microangiopathic changes. Cerebral ventricles: There is compensatory ventricular dilation. Pituitary gland and sella: There is a normal empty pituitary sella. Paranasal sinuses: Visualized sinuses are unremarkable. No fluid levels. Mastoid air cells: Visualized mastoid air cells are well aerated. Bones: Unremarkable. No acute fracture. Soft tissues: Unremarkable. Vasculature: The vasculature demonstrates diffuse moderate atherosclerotic calcification. IMPRESSION: No acute intracranial process is identified.
[2025-04-01 06:45] LABS: Microscopic, Urine URINE MICROSCOPIC (MICROSCOPIC)
[2025-04-01] MEDS: LACTATED RINGERS 1000ML 1,000 ML 999 ML IV ×2 (06:45→08:59)
[2025-04-01] MEDS: PIPERACILLIN/TAZO 4.5 GM in 0.9 % SODIUM CHLORIDE 100 ML IV ×3 (06:46→19:38)
[2025-04-01] MEDS: VANCOMYCIN/WATER FOR INJ (PEG) 1.5 GM/300 ML PIGGYBACK IV ×2 (06:46→20:44)
[2025-04-01 06:53] LABS: Thyroid Stimulating Hormone 3.12 uIU/mL (0.465-4.68)
[2025-04-01 06:57] LABS: Appearance,Urine CLOUDY (Clear); Bilirubin,Urine Negative (Negative); Blood, Urine 3+ (Negative); Color,Urine YELLOW (Yellow); Glucose,Urine (UA) Negative (Negative); Ketones,Urine 1+ (Negative); Leukocyte Esterase,Urine 2+ (Negative); Nitrate,Urine POSITIVE (Negative); Protein,Urine 2+ (Negative)
[2025-04-01] MEDS: ACETAMINOPHEN 1,000MG/100ML VIAL 1000 MG IV (07:22)
[2025-04-01] MEDS: SODIUM CHLORIDE 0.9% 10ML SYR (RAD ONLY) 10 ML IV (07:28)
[2025-04-01] MEDS: 0.9 % SODIUM CHLORIDE 50 ML VIAL IV (07:28)
[2025-04-01] MEDS: IOPAMIDOL-370 (76%);100ML BOTTLE 80 ML IV (07:28)
[2025-04-01 07:42] LABS: Amorphous Sediment,Urine Trace /lpf; Bacteria,Urine 3+ /lpf; RBC,Urine TNTC #/hpf (0-3); WBC,Urine TNTC #/hpf (0-3)
[2025-04-01] MEDS: SODIUM PHOS/BIPHOSPHATE FLEET 133ML ENEMA 133 ML RC (08:32)
--- NOTE | 2025-04-01 08:54 | P.HP_ITS ---
History of Present Illness *Admission Date: 04/01/25 *Reason for visit:: Confusion, fever *History of present illness: Mr. Okeefe is a 74-year-old male who presents from [facility]. He has a history of Alzheimer's, Parkinson's, psychotic disorder, GERD. Presents with altered mental status, new oxygen requirement and fever. History obtained from EMS and ER nursing staff. On arrival he was found to have an elevated temperature of 100.1. Noted to have tachycardia, tachypnea, elevated white count of 13. Meeting sepsis criteria. Normotensive. Necessitating 2 L nasal cannula for sats in the 90s. No meaningful response to stimuli other than moaning and opening eyes. Workup initiated with urinalysis and labs. Urine frankly purulent and concerning for UTI. Labs with white count. Chest imaging obtained showing concern for left lower lobe pneumonia. Administered sepsis bolus and IV antibiotics with vancomycin and Zosyn for empiric coverage. Medicine consulted for admission and further management. On arrival to the floor, unable to obtain any further history from patient. Appears in mild distress but comfortable in bed supine on 2 L. [facility] Disclaimer: The information contained in this section may have been updated after the patient was seen, as this information can be updated by other users. Medical History Severe protein-calorie malnutrition Iron deficiency anemia Sacral decubitus ulcer Impulse control disorder in adult Hypertensive disorder Hyponatremia Hyperlipemia GERD (gastroesophageal reflux disease) Affective psychosis Diabetes Alzheimer disease Mood disorder Surgical History History of dental surgery H/O right hemicolectomy Family History Other No significant family history Social History Smoking Status: Never smoker alcohol intake: never current occupational status: other Travel in the last 8 weeks?: None Have you lived/traveled outside [place] in past 30 days?: No Contact w/someone who lives/traveled outside US past 30 days?: No Exposure to someone with infectious disease in past 14 days?: No Do you have a fever (greater than 100.4 F or 38 C)?: No Have you tested positive for COVID-19?: No Exposed to someone with COVID-19 in past 14 days?: No Do you have a sore throat?: No Do you have a cough?: No Do you have any weakness?: Yes Do you have any diarrhea?: No Are you experiencing any unusual bleeding?: No Do you have any muscle aches/pain?: No Do you have any abdominal pain?: No Are you experiencing loss of taste or smell?: No Other Medical History Have you received the Flu Vaccine for this season: No Have you received the Pneumonia Vaccine: No Review of Systems Review of Systems Review of systems:: unable to obtain (Patient somnolent, unable to provide any history) Meds Home Medications and Allergies Home Medications ?Medication ?Instructions ?Recorded ?Confirmed ?Type carbidopa 25 mg-levodopa 100 mg 1 tab PO BID tremors 06/19/23 04/01/25 History tablet acetaminophen 500 mg tablet 500 mg PO Q6H PRN fever or pain 10/16/23 04/01/25 History (Acetaminophen Extra Strength) ketotifen fumarate 0.025 % (0.035 1 drp ophthalmic (eye) BID 10/16/23 04/01/25 History %) eye drops lactulose 10 gram/15 mL oral 20 g PO DAILY PRN Constipation 10/16/23 04/01/25 History solution loratadine 10 mg tablet (Claritin) 10 mg PO DAILY 10/16/23 04/01/25 History melatonin 3 mg tablet 3 mg PO HS 10/16/23 04/01/25 History ondansetron HCl 4 mg tablet 4 mg PO Q6H PRN nausea and vomiting 10/16/23 04/01/25 History divalproex 125 mg capsule,delayed 500 mg (4 x 125 mg) PO BID #120 02/04/24 04/01/25 Rx release sprinkle (Depakote caps Sprinkles) fluvoxamine 50 mg tablet 50 mg PO HS 11/17/24 04/01/25 History olanzapine 5 mg tablet 5 mg PO HS mood 11/17/24 04/01/25 History lisinopril 5 mg tablet 5 mg PO DAILY #30 tabs 12/26/24 04/01/25 Rx clonazepam 0.5 mg tablet 0.5 mg PO HS #30 tabs 02/22/25 04/01/25 Rx aluminum hydrox-magnesium carb 95 30 ml PO DAILYP PRN Acid Reflux 04/01/25 04/01/25 History mg-358 mg/15 mL oral suspension (Acid Gone Antacid) sennosides 8.6 mg tablet 8.6 mg PO DAILY 04/01/25 04/01/25 History trazodone 150 mg tablet 150 mg PO HS 04/01/25 04/01/25 History New Prescriptions to Start Prescriptions: Allergies Allergy/AdvReac Type Severity Reaction Status Date / Time gabapentin Allergy Verified 03/10/25 21:17 Exam Data for Last 24 hours Vital signs and Labs for Last 24 Hours: Temp Pulse Resp BP Pulse Ox O2 Del Method 100.1 F H 81 19 121/60 98 Nasal Cannula 04/01/25 05:59 04/01/25 08:30 04/01/25 08:30 04/01/25 08:30 04/01/25 08:30 04/01/25 08:30 Laboratory Results - last 24 hr 04/01/25 05:44: WBC 13.2 H, RBC 4.25 L, Hgb 12.6 L, Hct 36.8 L, MCV 86.6, MCH 29.6, MCHC 34.2, RDW 11.9, Plt Count 212, MPV 10.1, Neut % (Auto) 76.7, Lymph % (Auto) 11.7, [place] % (Auto) 9.9 H, Eos % (Auto) 0.6, Baso % (Auto) 0.4, Neut # (Auto) 10.1 H, Lymph # (Auto) 1.5, [place] # (Auto) 1.3 H, Eos # (Auto) 0.1, Baso # (Auto) 0.1, D-Dimer 1.11 H, Sodium 132 L, Potassium 3.9, Chloride 94 L, Carbon Dioxide 29, Anion Gap 12.9, BUN 14, Creatinine 0.70, Estimated Creat Clear 64, Estimated GFR 110, Est GFR ( Amer) 133, Glucose 183 H, Calcium 8.4, Magnesium 1.8, Total Bilirubin 0.9, AST 30, ALT 17, Alkaline Phosphatase 60, NT-Pro-B Natriuret Pep 235, Total Protein 7.8 D, Albumin 4.2, Globulin 3.6 H, Albumin/Globulin Ratio 1.2, TSH 3.12 04/01/25 06:12: VBG pH 7.48 H, VBG pCO2 34.2 L, VBG pO2 86.7 H, VBG HCO3 24.6, VBG Total CO2 25.7, VBG O2 Saturation 97.3 H, VBG Base Excess 1.0, VBG Lactic Acid 2.0 04/01/25 06:22: SARS-CoV-2 (PCR) Not detected, Influenza A Untype (PCR) Not detected, Influenza Type B (PCR) Not detected 04/01/25 06:40: Urine Color Yellow, Urine Appearance Cloudy, Urine pH 6.0, Ur Specific [place] 1.020, Urine Protein 2+ A, Urine Glucose (UA) Negative, Urine Ketones 1+, Urine Blood 3+ A, Urine Nitrate Positive A, Urine Bilirubin Negative, Urine Urobilinogen 1.0, Ur Leukocyte Esterase 2+ A, Urine RBC Tntc, Urine WBC Tntc, Ur Squamous Epith Cells None, Amorphous Sediment Trace, Urine Bacteria 3+ I & O for Last 24 hours: Intake & Output 03/29/25 03/30/25 03/31/25 04/01/25 23:59 23:59 23:59 23:59 Weight 71.668 kg Constitutional Constitutional: mild distress, thin, chronically ill appearing and somnolent *Routine HEENT Exam Head: Present normocephalic and atraumatic Eye: Present EOMI and PERRL ENT: Present mucous membranes dry *Routine Neck Exam Neck: Present supple; Absent JVD Routine Chest/Breast/Axilla Exam Chest wall: Absent tenderness *Routine Respiratory Exam Respiratory: Present CTA bilaterally; Absent accessory muscle use, respiratory distress, rhonchi, wheezes or crackles *Routine Cardiovascular Exam Cardiovascular: Present RRR, Normal S1 and Normal S2; Absent murmur *Routine Abdominal Exam Abdominal: Present soft and normoactive bowel sounds; Absent tenderness or dis tended Comments: Scaphoid *Routine Rectal Exam Rectal:: deferred *Routine Genitalia Exam Genitalia:: normal male *Routine Extremities Exam Extremities: Absent cyanosis, clubbing or edema Comments: Sarcopenia *Routine Skin Exam Skin: Present intact; Absent cyanosis or erythema *Routine Neurological Exam Neurological: Present altered mental status; Absent moving all extremities Comments: Rigid extremities. Opened eyes to voice and physical stimuli but did not make eye contact or follow commands. No meaningful verbal response. Assessment and Plan *Assessment and plan (1) Sepsis: Status: Acute Category: Medical Code(s): A41.9 - Sepsis, unspecified organism (2) Pneumonia: Status: Acute Category: Medical Code(s): J18.9 - Pneumonia, unspecified organism (3) Acute UTI: Status: Acute Category: Medical Code(s): N39.0 - Urinary tract infection, site not specified (4) AMS (altered mental status): Status: Acute Category: Medical Code(s): R41.82 - Altered mental status, unspecified (5) GERD (gastroesophageal reflux disease): Status: Acute Category: Medical Code(s): K21.9 - Gastro-esophageal reflux disease without esophagitis (6) Parkinson disease: Status: Chronic Category: Medical Code(s): G20.A1 - Parkinson's disease without dyskinesia, without mention of fluctuations (7) Alzheimer disease: Status: Acute Category: Medical Code(s): G30.9 - Alzheimer's disease, unspecified; F02.80 - Dementia in other diseases classified elsewhere, unspecified severity, without behavioral disturbance, psychotic disturbance, mood disturbance, and anxiety (8) Diabetes: Status: Inactive Category: Medical Code(s): E11.9 - Type 2 diabetes mellitus without complications Plan 74-year-old male with history of Alzheimer's, Parkinson's, hypertensive disorder and psychotic disorder. Presented from his skilled nursing with fever and altered mental status. Workup concerning for sepsis with UTI and pneumonia. Discussed case with ER physician, request admission for further management. I agreed to admit for further care. Continuing broad-spectrum antibiotics pending culture results. Will have further goals of care discussions with family in the coming days. Problems addressed as follows: Sepsis Pneumonia, left lower lobe UTI -Patient received vancomycin, Zosyn, IV fluids in the ER. -Continue supplemental oxygen as needed, for goal sats greater than 90%. Currently on 2 L -CT noted to have moderate atrophy and chronic white matter microangiopathic changes - CTA of the chest with no PE per my review. Noted to have left lower lobe pneumonia however - White count elevated at 13, hemoglobin 12.6. Kidney function normal with BUN 14, creatinine 0.7. Potassium 3.9. Repeat CBC, CMP, magnesium ordered for the morning. - Urinalysis obtained with 2+ leuk esterase, 3+ bacteria, white cells too numerous to count. Urine cultures and blood cultures pending - Continue Zosyn 4.5 g every 6 hours and vancomycin 1.5 g every 18 hours IV. Monitor for toxicity - Continue Tylenol 650 mg as needed every 6 hours for fever Encephalopathic: Behavioral disturbances secondary to underlying dementia and Parkinson's: - Suspect acute on chronic secondary to sepsis on top of his underlying Parkinson's. - Continue home clonazepam 0.5 mg nightly and olanzapine 5mg PO, transition to as needed due to confusion and only use for agitation - Continue fluvoxamine 50 mg nightly - Continue Depakote 500 mg twice daily - Continue melatonin 3 mg nightly for sleep - Hold trazodone 150 mg nightly for sleep and mood pending improvement in mentation Parkinson's: Continue carbidopa/levodopa 25/100 mg tablet twice daily HTN: - resume lisinopril 5mg daily Constipation: Continue senna 8.6 mg daily and lactulose 20 mg daily per home regimen DNR/DNI Regular diet PLOV 40mg sub-cu daily
--- NOTE | 2025-04-01 09:04 | PC.NURSE ---
report given to elsa walters
--- NOTE | 2025-04-01 09:05 | PC.NURSE ---
Called [facility] and gave update on admission.
--- NOTE | 2025-04-01 09:09 | SW/DCPLANNER ---
Patient currently resides at [facility] level of care. I will fax updated information to Chantal ortega/ [facility]. Discharge date is unknown at this time. I will continue to follow up.
--- NOTE | 2025-04-01 09:27 | PC.NURSE ---
arrived by stretcher from ED
--- NOTE | 2025-04-01 14:18 | EXP.PHA.CONS ---
Pharmacy Consult Date: 04/01/25 Time: 14:18 Referring provider: DR. CAMACHO Reason for Consult:: VANCOMYCIN DOSINGIN Allergies Allergy/AdvReac Type Severity Reaction Status Date / Time gabapentin Allergy Verified 03/10/25 21:17 Home Medications ?Medication ?Instructions ?Recorded ?Confirmed ?Type carbidopa 25 mg-levodopa 100 mg 1 tab PO BID tremors 06/19/23 04/01/25 History tablet acetaminophen 500 mg tablet 500 mg PO Q6H PRN fever or pain 10/16/23 04/01/25 History (Acetaminophen Extra Strength) ketotifen fumarate 0.025 % (0.035 1 drp ophthalmic (eye) BID 10/16/23 04/01/25 History %) eye drops lactulose 10 gram/15 mL oral 20 g PO DAILY PRN Constipation 10/16/23 04/01/25 History solution loratadine 10 mg tablet (Claritin) 10 mg PO DAILY 10/16/23 04/01/25 History melatonin 3 mg tablet 3 mg PO HS 10/16/23 04/01/25 History ondansetron HCl 4 mg tablet 4 mg PO Q6H PRN nausea and vomiting 10/16/23 04/01/25 History divalproex 125 mg capsule,delayed 500 mg (4 x 125 mg) PO BID #120 02/04/24 04/01/25 Rx release sprinkle (Depakote caps Sprinkles) fluvoxamine 50 mg tablet 50 mg PO HS 11/17/24 04/01/25 History olanzapine 5 mg tablet 5 mg PO HS mood 11/17/24 04/01/25 History lisinopril 5 mg tablet 5 mg PO DAILY #30 tabs 12/26/24 04/01/25 Rx clonazepam 0.5 mg tablet 0.5 mg PO HS #30 tabs 02/22/25 04/01/25 Rx aluminum hydrox-magnesium carb 95 30 ml PO DAILYP PRN Acid Reflux 04/01/25 04/01/25 History mg-358 mg/15 mL oral suspension (Acid Gone Antacid) sennosides 8.6 mg tablet 8.6 mg PO DAILY 04/01/25 04/01/25 History trazodone 150 mg tablet 150 mg PO HS 04/01/25 04/01/25 History New Prescriptions to Start Prescriptions: Height: 1.78 m Weight: 71.781 kg Laboratory Results:: Laboratory Results - last 24 hr 04/01/25 05:44: WBC 13.2 H, RBC 4.25 L, Hgb 12.6 L, Hct 36.8 L, MCV 86.6, MCH 29.6, MCHC 34.2, RDW 11.9, Plt Count 212, MPV 10.1, Neut % (Auto) 76.7, Lymph % (Auto) 11.7, [place] % (Auto) 9.9 H, Eos % (Auto) 0.6, Baso % (Auto) 0.4, Neut # (Auto) 10.1 H, Lymph # (Auto) 1.5, [place] # (Auto) 1.3 H, Eos # (Auto) 0.1, Baso # (Auto) 0.1, D-Dimer 1.11 H, Sodium 132 L, Potassium 3.9, Chloride 94 L, Carbon Dioxide 29, Anion Gap 12.9, BUN 14, Creatinine 0.70, Estimated Creat Clear 64, Estimated GFR 110, Est GFR ( Amer) 133, Glucose 183 H, Calcium 8.4, Magnesium 1.8, Total Bilirubin 0.9, AST 30, ALT 17, Alkaline Phosphatase 60, NT-Pro-B Natriuret Pep 235, Total Protein 7.8 D, Albumin 4.2, Globulin 3.6 H, Albumin/Globulin Ratio 1.2, TSH 3.12 04/01/25 06:12: VBG pH 7.48 H, VBG pCO2 34.2 L, VBG pO2 86.7 H, VBG HCO3 24.6, VBG Total CO2 25.7, VBG O2 Saturation 97.3 H, VBG Base Excess 1.0, VBG Lactic Acid 2.0 04/01/25 06:22: SARS-CoV-2 (PCR) Not detected, Influenza A Untype (PCR) Not detected, Influenza Type B (PCR) Not detected 04/01/25 06:40: Urine Color Yellow, Urine Appearance Cloudy, Urine pH 6.0, Ur Specific [place] 1.020, Urine Protein 2+ A, Urine Glucose (UA) Negative, Urine Ketones 1+, Urine Blood 3+ A, Urine Nitrate Positive A, Urine Bilirubin Negative, Urine Urobilinogen 1.0, Ur Leukocyte Esterase 2+ A, Urine RBC Tntc, Urine WBC Tntc, Ur Squamous Epith Cells None, Amorphous Sediment Trace, Urine Bacteria 3+ Medical History: Medical History (Updated 04/01/25 @ 08:37 by Irineo Adams MD) Severe protein-calorie malnutrition Iron deficiency anemia Sacral decubitus ulcer Impulse control disorder in adult Hypertensive disorder Hyponatremia Hyperlipemia GERD (gastroesophageal reflux disease) Affective psychosis Diabetes Alzheimer disease Mood disorder Assessment and Plan Assessment and plan all Dx Assessment and Plan for all problems:: Pharmacokinetic dosing service Objective: Patient: Floor: Age: 74 yo Serum creatinine: 1 mg/dL Height: 70.1 Inches Weight (kg): 72 Assessment: IBW (kg): 73.23 Dosing wt(kg): 72 Estimated Creatinine clearance (ml/min): 64.0 CRCL method: Cockcroft and Gault using ibw(default). Drug selected: Vancomycin Loading dose (mg): 0 Vd (liters): 57.6 (factor used: 0.8 L/kg) Avinash (hr-1): 0.058 Half life (hrs): 11.95 Recommended dose: 1500 mg Interval: 18 hrs Infusion time (hrs): 2.0 Predicted peak (mcg/mL): 37.9 Predicted trough (mcg/mL): 14.98 Total body weight is being used for vancomycin dosing. Recommendations: Give Vancomycin 1500 mg q 18 hrs with an expected Cpeak of 37.9 mcg/ml and an expected Ctrough of 14.98 mcg/ml ----Vanco only - ignore for aminoglycosides----- CLvanco= 3.34 L/hr AUC 0-24 /NORAH Data: NORAH 0.5 mcg/mL: AUC/NORAH: 1197.6 NORAH 1.0 mcg/mL: AUC/NROAH: 598.8 --------- NORAH 1.5 mcg/mL: AUC/NORAH: 399.2 NORAH 2.0 mcg/mL: AUC/NORAH: 299.4
--- NOTE | 2025-04-01 14:27 | HMH.OTEV ---
OT Inpatient Evaluation Rehab OT IP Evaluation Start: 04/01/25 10:51 Freq: ONCE Status: Active Protocol: Document 04/01/25 14:20 [facility] (Rec: 04/01/25 14:27 [facility] [id number]) Rehab OT IP Assessment Subjective History Pt able to provide his first name. Pt very hard to follow directions and appears to be slow to respond. Pt admitted 04/01/25 due to PNA/UTI. History and physical: 74-year-old male with history of Alzheimer's, Parkinson's, diabetes, psychotic disorder presents with altered mental status, hypoxia, tachycardia, fever. History was obtained via interactive discussion with patient, EMS, chart review. On arrival, patient is afebrile but temp of 100.1, tachycardic, normotensive, satting mid 90s on 2 L nasal cannula with EMS, moving all extremities spontaneously. Full physical exam performed and significant for GCS 10, patient moans to painful stimuli. Lungs are clear to auscultation Differential includes but is not limited to pneumonia, UTI, bacteremia, PE, intracranial pathology, kidney stone. Patient was given 1 L IV fluid bolus, vancomycin, Zosyn for empiric coverage of sepsis. Additional fluid was not given initially due to unknown fluid status. Workup initiated including CBC CMP BNP D-dimer VBG EKG UA chest x -ray. On re-evaluation, patient remains altered and tachycardic. Satting low 90s on room air. Laboratory workup independently interpreted by me and significant for Urine results from urine that was sent yesterday show too numerous to count WBCs and 4+ bacteria with positive nitrates indicating a likely urinary source. Urine from today not yet back. VBG shows mixed alkalosis, patient has a leukocytosis with white count of 13, mild hyponatremia .. Imaging independently interpreted by me and significant for chest x-ray without focal opacity, does have colon distended with gas noted.. See radiology read for full review of final results Subjective Pt unable to provide any prior level of functioning due to altered mental status. Per notes pt lived at [facility] . Objective Patient Orientation Person Bed Mobility bed mobility-scooting,bed mobility - supine/sit Assist Level Maximum x 2 (75% assist) Rehab OT IP prob,goals,plan Problems Date of Evaluation: 04/01/25 OT IP Problems Bed Mobility,Gait,Balance,Self care,Safety Rehab Potential Rehab Potential Good Equipment Needs Assistive Devices Rolling / Wheeled Walker Plan OT intervention Plan Bed Mobility,Transfers,Balance ,Self care,Safety,Therapeutic Exercise OT Plan Frequency Daily Duration LOS Discharge Goals Bed Mobility Ability Assistance x1 Sit to Stand Chair Transfer Ability Maximum x 1 (75% assist) Chair Transfer Ability Maximum x 1 (75% assist) Chair Transfer Technique Stand Pivot Chair Transfer Assistive Devices Rolling Walker Feeding Ability Assist with Tray Set Up Lower Body Dressing Ability Maximum Assistance Upper Body Dressing Ability Maximum Assistance Bathing Ability Maximum Assistance Performing Toilet Hygiene Ability Maximum Assistance Overall Commode/Toilet Transfer Ability Maximum Assistance Commode/Toilet Transfer Technique Stand Pivot Commode/Toilet Transfer Assistive Grab Bars Devices Discharge Plan OT Discharge Plan Pt will continue to be seen for OT services while at [facility]. Pt would benefit most from returning to [facility] for short term rehab and continued care. Continued skilled therapy when returning to SNF is important in order for patient to improve strength, safety, endurance, ADL independence, and functional transfers to reach PLOF. Eval Complexity Eval Charge Codes 15403 - Moderate Complexity PHYSICIAN CERTIFICATION: I certify the specified therapy services for Godfrey Okeefe are required, authorized, and reviewed every 30 days.
--- NOTE | 2025-04-01 14:27 | HMH.PTEV ---
Physical Therapy Evaluation Rehab PT IP Evaluation Start: 04/01/25 12:45 Freq: .once Status: Active Protocol: Document 04/01/25 13:59 SOLITARIO (Rec: 04/01/25 14:22 SOLITARIO [id number]) Subjective/History History History Per H&P: 74-year-old male with reported history of Alzheimer disease, Parkinson's , diabetes, Psychotic disorder presents for fever, hypoxia, altered mental status. Patient had a temperature of 100.4 at the nursing facility and was noted to have decreased appetite and fluid intake. Not been acting self for the last couple of days. [facility] sent to urine yesterday but they are not sure of the results. Unclear what patient's baseline mental status is. Subjective Subjective Pt asleep with mashed potatoes in his mouth upon arrival. Pt easy to wake but remained lethargic throughout. Once awake, pt attempted to continue performing eating tasks but displayed moderate difficulty. PT notified nursing at end of evaluation that it appears pt requires assistance with meals. Pt not able to answer history questions. When pt does speak, speech is difficult to understand. Pt able to say first name. Pt resides at [facility] per H&P . New diagnosis of cancer in past 12 No months? [facility] How much help from another person do you currently need... Turning from your back to your side Total while in a flat bed without using bedrails? Moving from lying on back to sitting on Total the side of a flat bed without using bedrails? Moving to and from a bed to a chair ( Total including a wheelchair)? Standing up from a chair using your arms Total ? (e.g., wheelchair, bedside chair) Walking in hospital room? Total Climbing 3-5 steps with a railing? Total Mobility Score 6 Mobility Level [facility] Mobility Calculator Mobility 2 Bed activities/ dependent transfer Rehab PT IP Eval Objective Appearance Patient Behavior Fatigued Patient Orientation Person Difficulty following instructions moderate Speech Pattern Garbled,Soft-Spoken,Mumbled, Poor Articulation Ambulation Patient Able to Ambulate No Balance Ability to Arise Unable Transfers Bed Transfer Ability Total/Dependent (100%) Rehab PT IP prob,goals,plan Problems Date of Evaluation: 04/01/25 PT IP Problems Bed Mobility,Transfers,Gait, Balance,Self care,Safety Rehab Potential Rehab Potential Good Plan PT Intervention Plan Bed Mobility,Transfers,Gait, Balance,Self care,Safety, Therapeutic Exercise Other Intervention Plan 1-2 times PT Plan Frequency Daily Duration LOS Discharge Goals Bed Transfer Ability Maximum x 2 (75% assist) Sit to Stand Chair Transfer Ability Maximum x 2 (75% assist) Discharge Plan PT Discharge Plan Initial physical therapy evaluation performed. Patient presents below baseline at this time in functional mobility. Pt was DEP A to perform supine>seated at EOB transition. Poor sitting balance noted as he required DEP A to remain seated as well . PT recommending short-term rehabilitation stay upon d/c from [facility]. Pt would benefit from skilled PT while at [facility] to prevent further functional decline and maximize safety with mobility. Eval Complexity Eval Charge Codes 84195 - Moderate Complexity PHYSICIAN CERTIFICATION: I certify the specified therapy services for Godfrey Okeefe are required, authorized, and reviewed every 30 days.
--- NOTE | 2025-04-01 15:30 | PC.WOUNDNOTE ---
Addendum entered by Dena Joseph RN 04/01/25 15:44: top photo: open area to posterior right upper thigh/buttocks area bottom photo: scar noted to abdomen Original Note:
--- NOTE | 2025-04-01 16:25 | PC.NURSE ---
Addendum entered by Dena Joseph RN 04/01/25 16:30: see nursing wound note for wound on posterior R thigh/buttocks Original Note: pt resting supine in bed with bed alarm on for pt safety. pt oriented to self only. sanabria in place draining pale yellow urine. pt requiring 2L NC to maintain o2 sats >90%. Incentive spirometer at bedside and pt educated on use, however pt refuses to use. iv abx given per jan. pt mumbles incomprehensible words. pt has episodes of moaning very loudly and shaking fists, but when staff enters the room he cannot express needs. on these occasions pt repositioned, offered food/drink, covered, reassured, etc. DNR/DNI obtained via phone consent with pt POA/brother. no needs expressed at this time. call light within reach.
[2025-04-01] MEDS: ENOXAPARIN 40MG/0.4ML SYRINGE 40 MG SUBCUT (17:15)
[2025-04-01] MEDS: CARBIDOPA/LEVODOPA 25/100MG TABLET 1 EACH PO (20:44)
[2025-04-01] MEDS: DIVALPROEX SOD SPRINKLE 125MG CAPSULE 500 MG PO (20:46)
[2025-04-02] VITALS (8 sets, daily range): BP systolic 107–129; BP diastolic 57–76; PULSE 56–100; RESP 15–19; TEMP 36.8–38.4; O2SAT 90–97; BMI 22.5
[2025-04-02] MEDS: ACETAMINOPHEN 325MG TAB 650 MG PO ×2 (00:40→04:37)
[2025-04-02] MEDS: PIPERACILLIN/TAZO 4.5 GM in 0.9 % SODIUM CHLORIDE 100 ML IV ×4 (01:06→21:06)
--- NOTE | 2025-04-02 03:20 | PC.NURSE ---
Pt alert to self only. Receiving IV abx. Had a bowel movement. Pt was cleaned, changed, and sanabria cath care was completed. Catheter is clean, patent, draining, anchored to non movable part of the bed with no kinks in the tubing. Flower dressing on gluteal fold changed. Pt is currently resting in bed with eyes closed. Respirations even and unlabored. Bed is low, locked, and call light is in reach.
[2025-04-02 06:34] LABS: Basophils % 0.6 % (0.1-2.0); Eosinophils % 0.3 % (0.1-12.0); Immature Granulocytes # 0.02 10^3uL; Immature Granulocytes % 0.3 %; Lymphocytes # 1.1 K/mm3 (0.7-4.5); Lymphocytes % 15.8 % (10-50); Mean Corpuscular HGB Conc 33.7 g/dL (31.8-35.4); Mean Corpuscular Hemoglobin 29.3 pg (27.0-31.2); Mean Platelet Volume 10.6 fl (7.4-10.4); Monocytes # 0.8 K/mm3 (0.1-1.0); Monocytes % 11.4 % (1.7-9.3); Neutrophils # 4.8 K/mm3 (1.8-7.8); Neutrophils % 71.6 % (37.0-80.0); Nucleated Red Blood Cells # 0 10^3/uL; Nucleated Red Blood Cells % 0 %; Platelet Count 179 K/mm3 (142-424); Red Blood Count 3.45 M/mm3 (4.60-6.20); Red Cell Distribution Width 11.9 % (11.5-17.5); Red Cell Distribution Width-SD 38.1 fL; White Blood Count 6.7 K/mm3 (4.8-10.8)
[2025-04-02 06:40] LABS: Alanine Aminotransferase 11 U/L (12-78); Alkaline Phosphatase 54 U/L (38-126); Anion Gap 9.1 mEq/L (5-15); Aspartate Amino Transferase 29 U/L (17-59); Bilirubin,Total 0.6 mg/dl (0.2-1.3); Carbon Dioxide 31 mmol/L (22.0-30.0); Chloride 100 mmol/L (98-107); Magnesium 1.9 mg/dl (1.6-2.3); Potassium 3.1 mmoL/L (3.5-5.1); Sodium 137 mmol/L (136-145)
[2025-04-02 06:41] LABS: Albumin Level 3.3 g/dl (3.5-5.0); Blood Urea Nitrogen 10 mg/dl (9-20); Calcium 8.1 mg/dl (8.4-10.2); Creatinine Clearance Estimated 63 mL/min (50-200); Estimated Glomerular Filt Rate 131 ml/min (>60); GFR (African American) 159 ML/MIN (>60); Globulin 3.2 g/dL (1.3-3.2); Glucose 132 mg/dl (74-100); Total Protein,Serum 6.5 g/dl (6.3-8.2)
[2025-04-02 06:43] LABS: Hemoglobin 10.1 g/dL (14.1-18.0)
[2025-04-02] MEDS: DIVALPROEX SOD SPRINKLE 125MG CAPSULE 500 MG PO ×2 (08:32→21:06)
[2025-04-02] MEDS: LISINOPRIL 5MG TABLET 5 MG PO (08:32)
[2025-04-02] MEDS: SENNA 8.6MG TABLET 8.6 MG PO (08:32)
[2025-04-02] MEDS: CARBIDOPA/LEVODOPA 25/100MG TABLET 1 EACH PO ×2 (08:32→21:06)
--- NOTE | 2025-04-02 10:11 | PC.NURSE ---
physical therapy got patient up to chair at 1000
--- NOTE | 2025-04-02 10:45 | DIET.NUTRFU ---
spoke to nursing today from [facility], they reported patient is on pureed diet with good intake. He does not wear teeth and able to feed self. Weight is stable. Updated order.
[2025-04-02] MEDS: SODIUM CHLORIDE 3% 15ML NEB 3 ML IH (11:00)
[2025-04-02] MEDS: ENOXAPARIN 40MG/0.4ML SYRINGE 40 MG SUBCUT (16:13)
--- NOTE | 2025-04-02 18:14 | PC.NURSE ---
Pt alert to self only. iv abx given per mar. sanabria in place draining pale yellow urine. pt diet switched to pureed per strategic debriefing officer. therapy assisted pt to chair this shift and pt tolerated well. Pt is currently resting in bed with eyes closed. Respirations even and unlabored. Bed is low, locked, and call light is in reach.
--- NOTE | 2025-04-02 21:03 | EXP.PN ---
Subjective *Date: 04/02/25 *Time: 21:03 Interval history: Patient continues to be pleasantly encephalopathic, confused, demented. No meaningful conversation. Exam Data for Last 24 hours Vital signs and Labs for Last 24 Hours: Temp Pulse Resp BP Pulse Ox O2 Del Method O2 Flow Rate 100.4 F H 100 H 17 121/59 L 95 Room Air 2 04/02/25 20:00 04/02/25 20:00 04/02/25 20:00 04/02/25 20:00 04/02/25 20:00 04/02/25 20:00 04/02/25 06:31 Laboratory Results - last 24 hr 04/01/25 06:40: Urine Color Yellow, Urine Appearance Cloudy, Urine pH 6.0, Ur Specific Sieper 1.020, Urine Protein 2+ A, Urine Glucose (UA) Negative, Urine Ketones 1+, Urine Blood 3+ A, Urine Nitrate Positive A, Urine Bilirubin Negative, Urine Urobilinogen 1.0, Ur Leukocyte Esterase 2+ A, Urine RBC Tntc, Urine WBC Tntc, Ur Squamous Epith Cells None, Amorphous Sediment Trace, Urine Bacteria 3+ 04/02/25 05:33: WBC 6.7 D, RBC 3.45 L, Hgb 10.1 L D, Hct 30.0 L, MCV 87.0, MCH 29.3, MCHC 33.7, RDW 11.9, Plt Count 179, MPV 10.6 H, Neut % (Auto) 71.6, Lymph % (Auto) 15.8, Ozark % (Auto) 11.4 H, Eos % (Auto) 0.3, Baso % (Auto) 0.6, Neut # (Auto) 4.8, Lymph # (Auto) 1.1, [place]ark # (Auto) 0.8, Eos # (Auto) 0.0, Baso # (Auto) 0.0, Sodium 137, Potassium 3.1 L D, Chloride 100, Carbon Dioxide 31 H, Anion Gap 9.1, BUN 10 D, Creatinine 0.60 L, Estimated Creat Clear 63, Estimated GFR 131, Est GFR ( Amer) 159, Glucose 132 H D, Calcium 8.1 L, Magnesium 1.9, Total Bilirubin 0.6, AST 29, ALT 11 L D, Alkaline Phosphatase 54, Total Protein 6.5, Albumin 3.3 L D, Globulin 3.2, Albumin/Globulin Ratio 1.0 L I & O for Last 24 hours: Intake & Output 03/30/25 03/31/25 04/01/25 04/02/25 23:59 23:59 23:59 23:59 Intake Total 580 / 1080 2079 / 0 Output Total 1500 / 0 950 / 950 Balance -920 / -970 1130 / 1130 Weight 71.781 kg 71.395 kg Microbiology Reports for the Last 24 Hours: Microbiology 04/01/25 06:20 Blood Blood Culture - Preliminary Gram Negative Rods 04/01/25 06:40 Urine,Catheterized Urine Culture - Preliminary 04/01/25 06:22 Blood Blood Culture - Preliminary NO GROWTH AFTER 24 HOURS Constitutional Constitutional: no acute distress Comments: Bedsheet over face. *Routine HEENT Exam Head: Present normocephalic Eye: Present EOMI and PERRL ENT: Present mucous membranes moist *Routine Neck Exam Neck: Present supple; Absent lymphadenopathy *Routine Respiratory Exam Respiratory: Present CTA bilaterally *Routine Cardiovascular Exam Cardiovascular: Present RRR *Routine Abdominal Exam Abdominal: Present soft and normoactive bowel sounds; Absent tenderness *Routine Extremities Exam Extremities: Absent cyanosis, clubbing or edema *Routine Skin Exam Skin: Present warm; Absent rash *Routine Neurological Exam Neurological: Present alert Assessment and Plan *Assessment and plan (1) Sepsis: Status: Acute Category: Medical Code(s): A41.9 - Sepsis, unspecified organism (2) Pneumonia: Status: Acute Category: Medical Code(s): J18.9 - Pneumonia, unspecified organism (3) Acute UTI: Status: Acute Category: Medical Code(s): N39.0 - Urinary tract infection, site not specified (4) AMS (altered mental status): Status: Acute Category: Medical Code(s): R41.82 - Altered mental status, unspecified (5) GERD (gastroesophageal reflux disease): Status: Acute Category: Medical Code(s): K21.9 - Gastro-esophageal reflux disease without esophagitis (6) Parkinson disease: Status: Chronic Category: Medical Code(s): G20.A1 - Parkinson's disease without dyskinesia, without mention of fluctuations (7) Alzheimer disease: Status: Acute Category: Medical Code(s): G30.9 - Alzheimer's disease, unspecified; F02.80 - Dementia in other diseases classified elsewhere, unspecified severity, without behavioral disturbance, psychotic disturbance, mood disturbance, and anxiety (8) Diabetes: Status: Inactive Category: Medical Code(s): E11.9 - Type 2 diabetes mellitus without complications Plan 74-year-old male with history of Alzheimer's, Parkinson's, hypertensive disorder and psychotic disorder. Presented from his senior care with fever and altered mental status. Workup concerning for sepsis with UTI and pneumonia. Discussed case with ER physician, request admission for further management. I agreed to admit for further care. Continuing broad-spectrum antibiotics pending culture results. Will have further goals of care discussions with family in the coming days. Problems addressed as follows: Sepsis #E. coli bacteremia Pneumonia, left lower lobe UTI - Patient received vancomycin, Zosyn, IV fluids in the ER. - Continue supplemental oxygen as needed, for goal sats greater than 90%. Currently on 2 L - CT noted to have moderate atrophy and chronic white matter microangiopathic changes - CTA of the chest with no PE per my review. Noted to have left lower lobe pneumonia however - Continues to have tachycardia with fever, leukocytosis has resolved however. ? Blood culture growing E. coli bacteremia. Pending sensitivities. - Urinalysis obtained with 2+ leuk esterase, 3+ bacteria, white cells too numerous to count. Urine cultures and blood cultures pending - Continue Zosyn 4.5 g every 6 hours and vancomycin 1.5 g every 18 hours IV. Monitor for toxicity - Continue Tylenol 650 mg as needed every 6 hours for fever Encephalopathic: Behavioral disturbances secondary to underlying dementia and Parkinson's: - Suspect acute on chronic secondary to sepsis on top of his underlying Parkinson's. - Continue home clonazepam 0.5 mg nightly and olanzapine 5mg PO, transition to as needed due to confusion and only use for agitation - Continue fluvoxamine 50 mg nightly - Continue Depakote 500 mg twice daily - Continue melatonin 3 mg nightly for sleep - Hold trazodone 150 mg nightly for sleep and mood pending improvement in mentation Parkinson's: Continue carbidopa/levodopa 25/100 mg tablet twice daily HTN: - resume lisinopril 5mg daily Constipation: Continue senna 8.6 mg daily and lactulose 20 mg daily per home regimen DNR/DNI Regular diet PLOV 40mg sub-cu daily
[2025-04-02] MEDS: MELATONIN 5MG TABLET 5 MG PO (21:06)
[2025-04-03] VITALS: BP 135/61; PULSE 87; RESP 18; TEMP 37.6; O2SAT 95
[2025-04-03] MEDS: PIPERACILLIN/TAZO 4.5 GM in 0.9 % SODIUM CHLORIDE 100 ML IV ×2 (01:46→08:26)
[2025-04-03 04:00] VITALS: BP 119/60; PULSE 77; RESP 17; TEMP 37.2; O2SAT 95; BMI 22.4
[2025-04-03 08:00] VITALS: BP 131/51; PULSE 81; RESP 16; TEMP 37.3; O2SAT 97
[2025-04-03] MEDS: SENNA 8.6MG TABLET 8.6 MG PO (08:27)
[2025-04-03] MEDS: DIVALPROEX SOD SPRINKLE 125MG CAPSULE 500 MG PO (08:27)
[2025-04-03] MEDS: CARBIDOPA/LEVODOPA 25/100MG TABLET 1 EACH PO (08:27)
[2025-04-03] MEDS: LISINOPRIL 5MG TABLET 5 MG PO (08:27)
[2025-04-03] MEDS: OLANZapine 10 MG VIAL 5 MG IM (11:34)
[2025-04-03 12:00] VITALS: BP 109/63; PULSE 83; RESP 18; TEMP 37; O2SAT 95
--- NOTE | 2025-04-03 13:13 | P.DS_ITS ---
General Admission date:: 04/01/25 HPI HPI HPI: Mr. Okeefe is a 74-year-old male who presents from [facility]. He has a history of Alzheimer's, Parkinson's, psychotic disorder, GERD. Presents with altered mental status, new oxygen requirement and fever. History obtained from EMS and ER nursing staff. On arrival he was found to have an elevated temperature of 100.1. Noted to have tachycardia, tachypnea, elevated white count of 13. Meeting sepsis criteria. Normotensive. Necessitating 2 L nasal cannula for sats in the 90s. No meaningful response to stimuli other than moaning and opening eyes. Workup initiated with urinalysis and labs. Urine frankly purulent and concerning for UTI. Labs with white count. Chest imaging obtained showing concern for left lower lobe pneumonia. Administered sepsis bolus and IV antibiotics with vancomycin and Zosyn for empiric coverage. Medicine consulted for admission and further management. On arrival to the floor, unable to obtain any further history from patient. Ap pears in mild distress but comfortable in bed supine on 2 L. Hospital Course Hospital Course Hospital Course: 74-year-old male with history of Alzheimer's, Parkinson's, hypertensive disorder and psychotic disorder. Presented from his [facility] with fever and altered mental status. Workup concerning for sepsis with UTI and pneumonia. Discussed case with ER physician, request admission for further management. I agreed to admit for further care. Continuing broad-spectrum antibiotics pending culture results. Will have further goals of care discussions with family in the coming days. Problems addressed as follows: #Acute metabolic encephalopathy #Sepsis #UTI #E. coli bacteremia #Pneumonia, left lower lobe ? Clinically improved with Zosyn. ? Urine, blood cultures growing E. coli sensitive to Zosyn. Transition to levofloxacin. - Continue supplemental oxygen as needed, for goal sats greater than 90%. Currently on 2 L - CT noted to have moderate atrophy and chronic white matter microangiopathic changes. ? Patient has underlying Alzheimer's and Parkinson's dementia. Spoke with nursing facility, back to baseline as far as mental status. Intermittently agitated, at baseline mostly unintelligible speech. But pleasant. ? Discharged with levofloxacin for 8 more days. #Alzheimer's disease #Behavioral disturbances secondary to underlying dementia and Parkinson's: - Suspect acute on chronic secondary to sepsis on top of his underlying Parkinson's. - Continue home clonazepam 0.5 mg nightly and olanzapine 5mg PO. - Continue fluvoxamine 50 mg nightly - Continue Depakote 500 mg twice daily - Continue melatonin 3 mg nightly for sleep Parkinson's: Continue carbidopa/levodopa 25/100 mg tablet twice daily HTN: - resume lisinopril 5mg daily Constipation: Continue senna 8.6 mg daily and lactulose 20 mg daily per home regimen Total time spent on discharge: 32 minutes on chart review, counseling, documentation, and direct care with patient. Exam Data for Last 24 hours Vital signs and Labs for Last 24 Hours: Temp Pulse Resp BP Pulse Ox O2 Del Method O2 Flow Rate 98.6 F 83 18 109/63 L 95 Room Air 2 04/03/25 12:00 04/03/25 12:00 04/03/25 12:00 04/03/25 12:00 04/03/25 12:00 04/03/25 12:00 04/02/25 06:31 I & O for Last 24 hours: Intake & Output 03/31/25 04/01/25 04/02/25 04/03/25 23:59 23:59 23:59 23:59 Intake Total 580 / 1080 2080 / 2080 400 / 400 Output Total 1500 / 2050 950 / 950 550 / 550 Balance -920 / -970 1130 / 1130 -150 / -150 Weight 71.781 kg 71.395 kg 71.259 kg Microbiology Reports for the Last 24 Hours: Microbiology 04/01/25 06:20 Blood Blood Culture - Preliminary Escherichia coli 04/01/25 06:40 Urine,Catheterized Urine Culture - Final Escherichia coli 04/01/25 06:22 Blood Blood Culture - Preliminary NO GROWTH AFTER 48 HOURS Constitutional Constitutional: no acute distress Comments: Bedsheet over face. *Routine HEENT Exam Head: Present normocephalic Eye: Present EOMI and PERRL ENT: Present mucous membranes moist *Routine Neck Exam Neck: Present supple; Absent lymphadenopathy *Routine Respiratory Exam Respiratory: Present CTA bilaterally *Routine Cardiovascular Exam Cardiovascular: Present RRR *Routine Abdominal Exam Abdominal: Present soft and normoactive bowel sounds; Absent tenderness *Routine Extremities Exam Extremities: Absent cyanosis, clubbing or edema *Routine Skin Exam Skin: Present warm; Absent rash *Routine Neurological Exam Neurological: Present alert Results Data Completed and Pending Labs on day of discharge: Preliminary micro results at discharge 04/01/25 06:20 Blood Culture - Preliminary Blood Escherichia coli 04/01/25 06:22 Blood Culture - Preliminary Blood NO GROWTH AFTER 48 HOURS DS: Diagnosis Discharge Diagnosis (1) Sepsis: Status: Acute Code(s): A41.9 - Sepsis, unspecified organism (2) Pneumonia: Status: Acute Code(s): J18.9 - Pneumonia, unspecified organism (3) Acute UTI: Status: Acute Code(s): N39.0 - Urinary tract infection, site not specified (4) AMS (altered mental status): Status: Acute Code(s): R41.82 - Altered mental status, unspecified (5) GERD (gastroesophageal reflux disease): Status: Acute Code(s): K21.9 - Gastro-esophageal reflux disease without esophagitis (6) Parkinson disease: Status: Chronic Code(s): G20.A1 - Parkinson's disease without dyskinesia, without mention of fluctuations (7) Alzheimer disease: Status: Acute Code(s): G30.9 - Alzheimer's disease, unspecified; F02.80 - Dementia in other diseases classified elsewhere, unspecified severity, without behavioral disturbance, psychotic disturbance, mood disturbance, and anxiety (8) Diabetes: Status: Inactive Code(s): E11.9 - Type 2 diabetes mellitus without complications Meds Home Medications and Allergies Home Medications ?Medication ?Instructions ?Recorded ?Confirmed ?Type carbidopa 25 mg-levodopa 100 mg 1 tab PO BID tremors 06/19/23 04/01/25 History tablet acetaminophen 500 mg tablet 500 mg PO Q6H PRN fever or pain 10/16/23 04/01/25 History (Acetaminophen Extra Strength) ketotifen fumarate 0.025 % (0.035 1 drp ophthalmic (eye) BID 10/16/23 04/01/25 History %) eye drops lactulose 10 gram/15 mL oral 20 g PO DAILY PRN Constipation 10/16/23 04/01/25 History solution loratadine 10 mg tablet (Claritin) 10 mg PO DAILY 10/16/23 04/01/25 History melatonin 3 mg tablet 3 mg PO HS 10/16/23 04/01/25 History ondansetron HCl 4 mg tablet 4 mg PO Q6H PRN nausea and vomiting 10/16/23 04/01/25 History divalproex 125 mg capsule,delayed 500 mg (4 x 125 mg) PO BID #120 02/04/24 04/01/25 Rx release sprinkle (Depakote caps Sprinkles) fluvoxamine 50 mg tablet 50 mg PO HS 11/17/24 04/01/25 History olanzapine 5 mg tablet 5 mg PO HS mood 11/17/24 04/01/25 History lisinopril 5 mg tablet 5 mg PO DAILY #30 tabs 12/26/24 04/01/25 Rx clonazepam 0.5 mg tablet 0.5 mg PO HS #30 tabs 02/22/25 04/01/25 Rx aluminum hydrox-magnesium carb 95 30 ml PO DAILYP PRN Acid Reflux 04/01/25 04/01/25 History mg-358 mg/15 mL oral suspension (Acid Gone Antacid) sennosides 8.6 mg tablet 8.6 mg PO DAILY 04/01/25 04/01/25 History trazodone 150 mg tablet 150 mg PO HS 04/01/25 04/01/25 History levofloxacin 750 mg tablet 750 mg PO DAILY 8 days #8 tabs 04/03/25 Rx New Prescriptions to Start Prescriptions: levofloxacin Lawrence Mendez Allergies Allergy/AdvReac Type Severity Reaction Status Date / Time gabapentin Allergy Verified 03/10/25 21:17 Discharge Plan Disposition Patient Disposition: [facility] Condition: Fair Discharge Order Discharge Orders: Discharge Order (Routine); Ordered 04/03/25 Ordered By: Lawrence Mendez Follow up Plan Prescriptions/Medication Reconciliation: New levofloxacin 750 mg tablet 750 mg PO DAILY 8 Days Qty: 8 0RF Continued fluvoxamine 50 mg tablet 50 mg PO HS lisinopril 5 mg tablet 5 mg PO DAILY Qty: 30 2RF acetaminophen [Acetaminophen Extra Strength] 500 mg tablet 500 mg PO Q6H PRN (Reason: fever or pain) lactulose 10 gram/15 mL solution 20 g PO DAILY PRN (Reason: Constipation) ondansetron HCl 4 mg tablet 4 mg PO Q6H PRN (Reason: nausea and vomiting) ketotifen fumarate 0.025 % (0.035 %) drops 1 drp ophthalmic (eye) BID Rx Instructions: Instill 1 drop into affected eye twice a day. loratadine [Claritin] 10 mg tablet 10 mg PO DAILY melatonin 3 mg tablet 3 mg PO HS divalproex [Depakote Sprinkles] 125 mg capsule, delayed rel sprinkle 500 mg PO BID Qty: 120 11RF olanzapine 5 mg tablet 5 mg PO HS clonazepam 0.5 mg tablet 0.5 mg PO HS Qty: 30 5RF Rx Instructions: administer 30 minutes before bedtime carbidopa-levodopa 25-100 mg tablet 1 tab PO BID sennosides 8.6 mg tablet 8.6 mg PO DAILY trazodone 150 mg Tablet 150 mg PO HS Rx Instructions: Give at 9pm Acid Gone Antacid 95-358 mg/15 mL suspension 30 ml PO DAILYP PRN (Reason: Acid Reflux) Problem Reconciliation Problems Reviewed?: Yes Patient Discharge Instructions Patient Instructions: DI for Pneumonia -- Adult, DI for Urinary Tract Infection (UTI), DI for Sepsis -- Adult, Catheter-Associated Urinary Tract Infection, Stop Light Pneumonia, Stop Light Infection Print Language: Serbian Providers Primary Care Provider: Provider,Referral Admit Provider: Lawrence Mendez Attending Provider: Lawrence Mendez
== END 2025-04-03 15:10 | DRG 871 ==
LOC: ER 08:37 → 2ND 08:54
PROVIDERS: Emergency Medicine; Internal Medicine Adolescent Medicine; Admitting Provider Student in an Organized Health Care Education/Training Program; Emergency Provider Emergency Medicine; Visit Provider Student in an Organized Health Care Education/Training Program
DX: A41.9 Sepsis, unspecified organism (principal); G93.41 Metabolic encephalopathy; J18.9 Pneumonia, unspecified organism; F02.818 Dementia in other diseases classified elsewhere, unspecified severity, with other behavioral disturbance; F05 Delirium due to known physiological condition; N39.0 Urinary tract infection, site not specified; F02.811 Dementia in other diseases classified elsewhere, unspecified severity, with agitation; G20.A1 Parkinson's disease without dyskinesia, without mention of fluctuations; B96.20 Unspecified Escherichia coli [E. coli] as the cause of diseases classified elsewhere; K59.00 Constipation, unspecified; I10 Essential (primary) hypertension; G30.9 Alzheimer's disease, unspecified; K21.9 Gastro-esophageal reflux disease without esophagitis; Z88.8 Allergy status to other drugs, medicaments and biological substances; Z66 Do not resuscitate; Z79.899 Other long term (current) drug therapy; Z86.39 Personal history of other endocrine, nutritional and metabolic disease
CPT/HCPCS: 36415; 70450; 71045; 71275; 74177; 80053; 81001; 82803; 83735; 83880; 84443; 85025; 85378; 87040; 87077; 87086; 87186; 87636; 93005; 97162; 97166; 97530; 99285; J0131; J1650; J2543; J3372; J7120; Q9967

== ENCOUNTER 2025-04-07 07:20 | Outpatient (CLI) | payer MEDICARE, MEDICAID, SELFPAY ==
[2025-04-07 07:42] LABS: Anion Gap 11.4 mEq/L (5-15); Blood Urea Nitrogen 8 mg/dl (9-20); Carbon Dioxide 34 mmol/L (22.0-30.0); Chloride 98 mmol/L (98-107); Chol/HDL Ratio 5.7 (1-3.5); Cholesterol 103 mg/dl (140-200); Estimated Glomerular Filt Rate 110 ml/min (>60); GFR (African American) 133 ML/MIN (>60); Glucose 134 mg/dl (74-100); HDL Cholesterol 18 mg/dl (40-60); Potassium 4.4 mmoL/L (3.5-5.1); Sodium 139 mmol/L (136-145); Triglycerides 156 mg/dl (30-150); VLDL Cholesterol 31 mg/dL (0-40)
[2025-04-07 07:53] LABS: Direct LDL Cholesterol 59.09 mg/dL (100-129); Valproic Acid, (Depakene) 59.5 ug/ml (50-100)
[2025-04-07 08:31] LABS: Vitamin B12 763 pg/mL (239-931)
[2025-04-07 09:24] LABS: Folate 7.69 ng/mL
[2025-04-07 09:52] LABS: Iron 89 ug/dL (49-181)
[2025-04-07 10:06] LABS: Total Iron Binding Capacity 263 ug/dL (261-462)
[2025-04-07 10:30] LABS: Ferritin 308 ng/ml (17.9-464)
== END 2025-04-07 23:59 | disposition home or self-care (01) ==
PROVIDERS: PCP Nurse Practitioner Family; Visit Provider Nurse Practitioner Family
DX: E87.6 Hypokalemia (principal); D64.9 Anemia, unspecified; F39 Unspecified mood [affective] disorder
CPT/HCPCS: 36415; 80048; 80061; 80164; 82607; 82728; 82746; 83540; 83550

== ENCOUNTER 2025-05-17 07:21 | Outpatient (CLI) | payer MEDICARE, MEDICAID, SELFPAY ==
--- OUTSIDE RECORDS SUMMARY | 2025-05-17 07:22 | XMS_ITS ---
Author Name Auto Generated, Auto Generated Organization [facility] Address [address] [place] [address] Phone [phone] Care Team Providers Care Business And Marketing Teacher Name Role Phone Emeterio Hugo Unavailable [phone] Heber Savage Unavailable Jenn Birmingham Unavailable [phone] Functional Status No Results Mental Status No Results Allergies and Intolerances Name Onset Date Reaction Severity gabapentin (Allergy) SatJun 20 17:43:00 EDT 202 3 Medications Medication Directions Start Date End Date fluvoxaMINE ER 100 mg capsule,extended release 24 hr 1 Capsule Oral Hour Of Sleep Indication: OCD,impulse control issues SatFeb 13 00:00:00 EDT 2023Feb 13 13:26:00 EDT 2023 fluvoxaMINE 100 mg tablet 0.5 Tablet Ora l Hour Of Sleep Indication: OCD SatFeb 13 00:00:00 EDT 2023May 04 00:00:00 EDT 2023 ZyPREXA 10 mg tablet 1 Tablet Oral Hour Of Sleep Indication: OCD. Give with 5 mg tab at bedtime for 15mg at bedtime SatFeb 13 00:00:00 EDT 2023May 04 00:00:00 EDT 2023 Tylenol Extra Strength 500 mg tablet 1 Tablet Oral PRN Every 6 Hours Indication: pain fever SatFeb 04 00:00:00 EDT 2023May 04 00:00:00 EDT 2023 Gaviscon 95 mg-358 mg/15 mL oral suspension 30 Milliliter Oral PRN 1 Time Daily Indication: reflux SatFeb 04 00:00:00 EDT 2023May 04 00:00:00 EDT 2023 lactulose 10 gram/15 mL oral solution 30 Milliliter Oral PRN 1 Time Daily Indication: constipation SatFeb 04 00:00:00 EDT 2023May 04 00:00:00 EDT 2023 Zofran 4 mg tablet 1 Tablet Oral PRN Ev isabell 6 Hours Indication: nausea SatFeb 04 00:00:00 EDT 2023May 04 00:00:00 EDT 2023 Sinemet 25 mg-100 mg tablet 1 Tablet Oral 2 Times Daily Indication: parkinsons SatFeb 04 00:00:00 EDT 2023May 04 00:00:00 EDT 2023 Levsin 0.125 mg tablet 1 Tablet Oral Ramila ry 6 Hours Indication: secretions SatFeb 04 00:00:00 EDT 2023May 04 00:00:00 EDT 2023 KlonoPIN 0.5 mg tablet 1 Tablet Oral 1 T ashley Daily Indication: give at 5 pm, anxiety, insomnia SatFeb 04 00:00:00 EDT 2023May 04 00:00:00 EDT 2023 fluvoxaMINE ER 100 mg capsule,extended release 24 hr 1 Capsule Oral Hour Of Sleep Indication: OCD,impulse control issues SatFeb 04 00:00:00 EDT 2023Feb 04 11:41:00 EDT 2023 Depakote Sprinkles 125 mg capsule,delayed release 4 Capsule Oral 2 Times Daily Indication: seizures SatFeb 04 00:00:00 EDT 2023May 04 00:00:00 EDT 2023 fluvoxaMINE ER 100 mg capsule,extended release 24 hr 1 Capsule Oral Hour Of Sleep Indication: OCD,impulse control issues SatFeb 04 00:00:00 EDT 2023Feb 13 13:24:00 EDT 2023 Zaditor 0.025 % (0.035 %) eye drops 1 Drop Both Eyes 2 Times Daily Indication: allergies,itchy eyes SatFeb 04 00:00:00 EDT 2023May 04 00:00:00 EDT 2023 Claritin 10 mg tablet 1 Tablet Oral 1 Ti me Daily Indication: allergies SatFeb 04 00:00:00 T 2023May 04 00:00:00 EDT 2023 melatonin 3 mg tablet 1 Tablet Oral Hour Of Sleep Indication: insomnia SatFeb 04 00:00:00 EDT 2023May 04 00:00:00 EDT 2023 ZyPREXA 10 mg tablet 1 Tablet Oral Hour Of Sleep Indication: OCD. Give with 5 mg tab for total od 15mg SatFeb 04 00:00:00 EDT 2023Feb 04 11:47:00 EDT 2023 ZyPREXA 5 mg tablet 1 Tablet Oral Hour O f Sleep Indication: OCD, impulse control issues Give with 10mg for total of 15mg SatFeb 04 00:00:00 EDT 2023May 04 00:00:00 EDT 2023 ZyPREXA 10 mg tablet 1 Tablet Oral 2 Jamie es Daily Indication: OCD. Give with 5 mg tab at bedtime for 15mg at bedtime SatFeb 04 00:00:00 EDT 2023Feb 13 13:27:00 EDT 2023 Senokot 8.6 mg tablet 1 Tablet Oral 1 Ti me Daily Indication: bowels SatFeb 04 00:00:00 EDT 2023May 04 00:00:00 EDT 2023 traZODone 150 mg tablet 1 Tablet Oral Ho ur Of Sleep Indication: insomnia SatFeb 04 00:00:00 EDT 2023May 04 00:00:00 EDT 2023 sertraline 50 mg tablet 1tab TABLET Oral Every 1 Day Indication: anxiety/behaviors SatAug 30 00:00:00 EDT 2022Sep 16 00:00:00 EST 2022 mirtazapine 15 mg tablet 1tab TABLET Ora l Hour Of Sleep Indication: anxiety/sleep SatAug 30 00:00:00 EDT 2022Sep 16 00:00:00 EST 2022 melatonin 3 mg tablet 1 TABLET Oral Hour Of Sleep Indication: sleep SatJul 17 00:00:00 EDT 2022Sep 16 00:00:00 EST 2022 Levsin 0.125 mg tablet 1tab TABLET Oral Every 6 Hours Indication: secretions/drooling SatJun 28 00:00:00 EDT 2022Sep 16 00:00:00 EST 2022 Ativan 0.5 mg tablet 1tab TABLET Oral 2 Times Daily Indication: anxiety. Take in am and noon SatJun 28 00:00:00 EDT 2022Sep 16 00:00:00 EST 2022 Ativan 1 mg tablet 1tab TABLET Oral Logan r Of Sleep Indication: restlessness/sleep SatJun 28 00:00:00 EDT 2022Sep 16 00:00:00 EST 2022 Oxygen 2L Inhalation PRN Indication: SOA SatJun 20 00:00:00 EDT 2022Sep 16 00:00:00 EST 2022 Tylenol Extra Strength 500 mg tablet 1tab TABLET Oral PRN 4 Times Daily Indication: pain fever SatJun 20 00:00:00 EDT 2022Sep 16 00:00:00 EST 2022 ammonium lactate 12 % topical cream to affected area CREAM (GRAM) Topical 2 Times Daily Indication: skin irritation on feet SatJun 20 00:00:00 EDT 2022Sep 16 00:00:00 EST 2022 busPIRone 10 mg tablet 1tab TABLET Oral 2 Times Daily Indication: mood SatJun 20 00:00:00 ED2022Jun 28 08:20:00 EDT 2022 carbidopa 25 mg-levodopa 100 mg tablet 1tab TABLET Oral 2 Times Daily Indication: tremors/parkinsons SatJun 20 00:00:00 EDT 2022Sep 16 00:00:00 EST 2022 citalopram 20 mg tablet 1tab TABLET Oral Every 1 Day Indication: depression SatJun 20 00:00:00 EDT 2022Aug 30 11:55:00 EDT 2022 divalproex 500 mg tablet,delayed release 1tab TABLET, DELAYED RELEASE (ENTERIC COATED) Oral 2 Times Daily Indication: seizures SatJun 20 00:00:00 EDT 2022Sep 16 00:00:00 EST 2022 ketoconazole 2 % topical cream affected area CREAM (GRAM) Topical PRN 1 Time Daily Indication: skin treatment SatJun 20 00:00:00 EDT 2022Sep 16 00:00:00 EST 2022 OLANZapine 15 mg tablet 1tab TABLET Oral Every 1 Day Indication: mood SatJun 20 00:00:00 EDT 2022Sep 16 00:00:00 EST 2022 divalproex 250 mg tablet,delayed release 1tab TABLET, DELAYED RELEASE (ENTERIC COATED) Oral Every 1 Day Indication: seizures SatJun 20 00:00:00 EDT 2022Sep 16 00:00:00 EST 2022 Senna-S 8.6 mg-50 mg tablet 1tab TABLET Oral Every 1 Day Indication: bowels SatJun 20 00:00:00 2022Sep 16 00:00:00 EST 2022 ketotifen 0.025 % (0.035 %) eye drops 1drop DROPS Both Eyes PRN 2 Times Daily Indication: dry eyes SatJun 20 00:00:00 2022Sep 16 00:00:00 EST 2022 lactulose 10 gram/15 mL oral solution 30ml SOLUTION, ORAL Oral PRN 1 Time Daily Indication: constipation SatJun 20 00:00:00 2022Sep 16 00:00:00 EST 2022 Levsin 0.125 mg tablet 1tab TABLET Oral 2 Times Daily Indication: secretions/drooling SatJun 20 00:00:00 EDT 2022Jun 28 08:19:00 EDT 2022 Zofran 4 mg tablet 1tab TABLET Oral PRN Every 6 Hours Indication: nausea SatJun 20 00:00:00 ED2022Sep 16 00:00:00 EST 2022 Acid Gone Antacid 95 mg-358 mg/15 mL oral suspension 30ml SUSPENSION, ORAL (FINAL DOSE FORM) Oral PRN 1 Time Daily Indication: reflux SatJun 20 00:00:00 EDT 2022Sep 16 00:00:00 EST 2022 Problems No Known Problems Reason for Referral
--- OUTSIDE RECORDS SUMMARY | 2025-05-17 07:23 | XMS_ITS | Clinical Summary ---
Author Organization [facility] Address [address] [place] [address] Phone Care Team Providers Care Weather Anchor Name Role Phone Unavailable Primary Care Provider Unavailabl e Medications * This document contains information received from the source organization and may not represent a complete record from that organization. suvorexant 10 mg Oral Tablet Take 10 mg by mouth nightly. 30 Tablet 1 09/19/2023 Active clonazePAM (KLONOPIN) 0.5 mg Oral TabletIndication s:LEAH (generalized anxiety disorder) TAKE 1 TAB BY MOUTH ONCE DAILY AT 5PM 30 Tablet 3 05/04/2024 Active Active Problems No known active problems Social History Tobacco Use Types Packs/Day Years Used Date Smoking Tobacco: Every Day Cigarettes Tobacco Cessation:Ready to Q uit: Not Asked; Counseling Given: Not Answered Alcohol Use Standard Drinks/Week Comments Not Currently 0 (1 standard drink = 0.6 oz pur e alcohol) Sex and Gender Information Value Date Recorded Sex Assigned at Not on file Legal Sex Male 8:27 AM EDT Gender Identity Not on file Sexual Orientation Not on file Obstetrics History Plan of Treatment Health Maintenance Due Date Last Done Comments Wellness Exam Medicare 1953 Hepatitis C Screening 1966 DTaP/TDaP/Td (1 - Tdap) 1967 Pneumococcal Vaccine 50+ (1 of 2 - PCV) 1967 Zoster (1 of 2) 1998 RSV or 60+ (1 - 1-d ose 75+ series) 2023 COVID-19 Vaccine (1 - 2023-2 5 season) 2024 Influenza Vaccine (#1) 2025 Hepatitis B Vaccine Aged Out No longe r eligible based on patient's age to complete this topic Meningococcal B Vaccine Aged Out No l onger eligible based on patient's age to complete this topic Insurance [place]ICAID [place] [address]
--- OUTSIDE RECORDS SUMMARY | 2025-05-17 07:23 | XMS_ITS | Clinical Summary ---
Author Organization [facility] Address [address] [place] [address] Care Team Providers Care Ug Designer Name Role Phone Kaushal Rojas MD Primary Care Provider + [phone] Active Problems Problem Noted Date Diagnosed Date Dysphagia, oropharyngeal 10/25/2023 Social History Tobacco Use Types Packs/Day Years Used Date Smoking Tobacco: Never Assessed Sex and Gender Information Value Date Recorded Sex Assigned at Not on file Legal Sex Male 7:34 PM EDT Gender Identity Not on file Sexual Orientation Not on file Plan of Treatment Health Maintenance Due Date Last Done Comments [facility]-Depression Screening 1950 [facility]-Hepatitis C Screening 1950 [facility]-Medicare Annual Wellness (AWV) 1950 [facility]-Infant/Child/Adol SDOH Screenings 1950 [facility]- SDOH Screenings 1966 [facility]-Adult SDOH Screenings 1966 [facility]-Pneumococcal Vaccine: 50+ Years (1 of 1 - PCV) 1998 [facility]-Zoster Vaccines (1 of 2) 1998 [facility]-DTaP,Tdap,and Td Vaccines (1 - Tdap) 05/06/2012 05/05/2012 [facility]-RSV Vaccine: 60+ Years or (1 - 1-dose 75+ series) 2023 [id number] Vaccine ( - season) 2024 04/30/2022, 09/28/2021, 01/25/2021, Additional history exists [facility]-Influenza Vaccine (#1) 07/12/202509/23, 10/23/2014, 08/19/2009, Additional history exists HPV Vaccines Aged Out No longer eligi ble based on patient's age to complete this topic [facility]-HIB Vaccines Aged Out No longer e ligible based on patient's age to complete this topic [facility]-Hepatitis A Vaccines Aged Out No longer eligible based on patient's age to complete this topic [facility]-IPV Vaccines Aged Out No longer e ligible based on patient's age to complete this topic [facility]-Rotavirus Vaccines Aged Out No lo nger eligible based on patient's age to complete this topic Insurance [facility] [address] [facility] [id number] [facility] [place] [address] MED[place]ID-[place] Care Teams Ug Designer Relationship Specialty Start Date End Date Kaushal Rojas MD [address] [place] [address] EL[place]A Oliva [address] PCP - General 09/27/23
[2025-05-17 10:52] LABS: Hemoglobin A1C 7.9 % (4.0-6.0)
== END 2025-05-17 23:59 | disposition home or self-care (01) ==
PROVIDERS: PCP Family Medicine; Visit Provider Family Medicine
DX: R73.09 Other abnormal glucose (principal)
CPT/HCPCS: 36415; 83036

== ENCOUNTER 2025-08-27 07:44 | Outpatient (CLI) | payer MEDICARE, MEDICAID, SELFPAY ==
--- OUTSIDE RECORDS SUMMARY | 2025-08-27 07:47 | XMS_ITS | Clinical Summary ---
Author Organization [facility] Address [address] [place] [address] Phone Care Team Providers Care Hairspring Adjuster Name Role Phone Unavailable Primary Care Provider [...] 1-d ose 75+ series) 2023 COVID-19 Vaccine ( - 2023-2 5 season) 2025 Influenza Vaccine (#1) 2025 Hepatitis B Vaccine Aged Out No longe r eligible based on patient's age to complete this topic Meningococcal B Vaccine Aged Out No l onger eligible based on patient's age to complete this topic Insurance MEDICAID [place] MEDICARE [place] PART A AND B
--- OUTSIDE RECORDS SUMMARY | 2025-08-27 07:47 | XMS_ITS | Clinical Summary ---
Author Organization [facility] Address [address] [place] [address] Care Team Providers Care Director Patient Name Role Phone Kaushal Rojas MD Primary Care Provider + [phone] Active Problems Problem Noted Date Diagnosed Date [...] or (1 - 1-dose 75+ series) 2023 [id number] Vaccine ( - season) 2025 04/30/2022, 09/28/2021, 01/25/2021, Additional history exists [facility]-Influenza [...] patient's age to complete this topic Insurance [facility] [address] [facility] [id number] [facility] MEDICARE MEDICAID-[place] Care Teams Director Patient Relationship Specialty Start Date End Date Kaushal Rojas MD [address] [place] [address] [place] Oliva [address] PCP - General 09/27/23
[2025-08-27 09:44] LABS: Anion Gap 13.4 mEq/L (5-15); Blood Urea Nitrogen 7 mg/dl (9-20); Calcium 8.8 mg/dl (8.4-10.2); Carbon Dioxide 34 mmol/L (22.0-30.0); Chloride 88 mmol/L (98-107); Creatinine,Serum 0.70 mg/dl (0.66-1.25); Estimated Glomerular Filt Rate 109 ml/min (>60); GFR (African American) 132 ML/MIN (>60); Glucose 118 mg/dl (74-100); Potassium 4.4 mmoL/L (3.5-5.1); Sodium 131 mmol/L (136-145)
[2025-08-27 09:51] LABS: Valproic Acid, (Depakene) 60.8 ug/ml (50-100)
[2025-08-27 10:10] LABS: Hemoglobin A1C 5.9 % (4.0-6.0)
== END 2025-08-27 23:59 | disposition home or self-care (01) ==
PROVIDERS: PCP Nurse Practitioner Family; Visit Provider Nurse Practitioner Family
DX: Z51.81 Encounter for therapeutic drug level monitoring (principal); E11.29 Type 2 diabetes mellitus with other diabetic kidney complication
CPT/HCPCS: 36415; 80048; 80164; 83036

== ENCOUNTER 2025-10-01 09:02 | Outpatient (CLI) | payer MEDICARE, MEDICAID, SELFPAY ==
--- OUTSIDE RECORDS SUMMARY | 2025-10-01 09:09 | XMS_ITS | Clinical Summary ---
Author Organization [facility] Address [address] [place] [address] Care Team Providers Care Meteorological Observer Name Role Phone Kaushal Rojas MD Primary Care Provider + [phone] Active Problems Problem Noted Date Diagnosed Date [...] Screening 1950 [facility]-Medicare Annual Wellness (AWV) 1948 [facility]-/Child/Adol SDOH Screenings 1948 [facility]- SDOH Screenings 1966 [facility]-Adult SDOH Screenings 1966 [facility]-Pneumococcal Vaccine: 50+ Years (1 of 1 - PCV) 1998 [facility]-Zoster Vaccines (1 of 2) 1998 [facility]-DTaP,Tdap,and Td Vaccines (1 - Tdap) 05/06/2012 05/05/2012 [facility]-RSV Vaccine: 60+ Years or (1 - 1-dose 75+ series) 2023 [id number] Vaccine ( - season) 2025 04/30/2022, 09/28/2021, [...] patient's age to complete this topic Insurance [facility] [address] [facility] [id number] [facility] MEDICARE [place]ID[place] Care Teams Meteorological Observer Relationship Specialty Start Date End Date Kaushal Rojas MD [address] [place] [address] [place] Oliva [address] PCP - General 09/27/23
[2025-10-01 09:45] LABS: Valproic Acid, (Depakene) 65.2 ug/ml (50-100)
== END 2025-10-01 23:59 | disposition home or self-care (01) ==
LOC: LAB.DROPOF 09:03
PROVIDERS: PCP Nurse Practitioner Family; Visit Provider Family Medicine
DX: Z51.81 Encounter for therapeutic drug level monitoring (principal)
CPT/HCPCS: 36415; 80164

== ENCOUNTER 2025-10-09 10:36 | Emergency (ER) | payer MEDICARE, MEDICAID, SELFPAY ==
[2025-10-09] VITALS (9 sets, daily range): BP systolic 116–146; BP diastolic 54–79; PULSE 59–113; RESP 12–18; TEMP 36.7; O2SAT 18–99; BMI 24.2
--- NOTE | 2025-10-09 10:40 | CT_ITS ---
PROCEDURE INFORMATION: Exam: CTA Neck With Contrast Exam date and time: 10/09/2025 12:14 PM Age: 75 years old Clinical indication: Stroke-like symptoms; Altered mental status/memory loss; Additional info: Altered mental status; Slurred speech TECHNIQUE: Imaging protocol: Computed tomographic angiography of the neck with contrast. Exam focused on the cervical segments of the vasculature. 3D rendering (Not supervised by radiologist): MIP and/or 3D reconstructed images were created by the technologist. Radiation optimization: All CT scans at this facility use at least one of these dose optimization techniques: automated exposure control; mA and/or kV adjustment per patient size (includes targeted exams where dose is matched to clinical indication); or iterative reconstruction. Contrast material: ISOVUE; Contrast volume: 80 ml; Contrast route: INTRAVENOUS (IV); COMPARISON: CT ANGIO CHEST PE PROTOCOL 04/01/2025 7:07 AM FINDINGS: Right common carotid artery: Right common carotid artery : Minimal calcifications adjacent to the bifurcation. Right carotid bifurcation: calcification at the bifurcation. No narrowing. Right internal carotid artery: Unremarkable Right external carotid artery: Unremarkable Left common carotid artery: Left common carotid artery : Bovine origin. Otherwise unremarkable. Left carotid bifurcation : Minimal calcifications at the bifurcation. No narrowing. Left internal carotid artery: Left internal carotid arteries: Unremarkable Left external carotid artery: Unremarkable Right vertebral artery: Patent. Possibly terminates as the right posteroinferior cerebellar artery. Left vertebral artery: Patent. Basilar artery: Patent. Diminutive in size. Aorta: Transverse aorta: Calcifications otherwise unremarkable Other arteries: innominate artery: Unremarkable. Soft tissues: Regarding the soft tissues: Noncontributory Bones/joints: No acute fracture. IMPRESSION: Minimal calcifications in the region of the carotid bifurcation. No narrowing. REFERENCES: NASCET CRITERIA. The degree of stenosis in the cervical segment of the internal carotid artery is based on NASCET criteria. Normal is no stenosis. Mild is less than 50% stenosis. Moderate is 50-69% stenosis. Severe is 70% to 99% stenosis. Total occlusion is no detectable patent lumen.
--- NOTE | 2025-10-09 10:40 | CT_ITS ---
PROCEDURE INFORMATION: Exam: CT Head Without Contrast Exam date and time: 10/09/2025 12:07 PM Age: 75 years old Clinical indication: Stroke-like symptoms; Altered mental status/memory loss; Additional info: Altered mental status; Slurred speech TECHNIQUE: Imaging protocol: Computed tomography of the head without contrast. Radiation optimization: All CT scans at this facility use at least one of these dose optimization techniques: automated exposure control; mA and/or kV adjustment per patient size (includes targeted exams where dose is matched to clinical indication); or iterative reconstruction. Other technique: STROKE PROTOCOL was implemented. COMPARISON: No relevant prior studies available. FINDINGS: Brain: Hypodensity is seen in the periventricular cerebral white matter. This change is nonspecific but is most likely secondary to chronic ischemia within microvascular distributions. No intra or extra-axial masses, lesions or collections. Duncan white matter distinction is maintained throughout the brain. No radiographic evidence of intracranial hemorrhage. No parafalcine or tentorial hemorrhage. Cerebral ventricles: Ventricles are enlarged on the basis of mild diffuse cerebral volume loss. Paranasal sinuses: Visualized sinuses are unremarkable. No fluid levels. Mastoid air cells: Visualized mastoid air cells are well aerated. Bones: Greater and lesser wings of the sphenoid normal. Retro bulbar fat normal. Medial and lateral pterygoids normal. Soft tissues: Unremarkable. IMPRESSION: No radiographic evidence of acute intracranial pathology. ASSESSMENT: ASPECTS ([place] Stroke Program Early CT Score) is 10.
--- NOTE | 2025-10-09 10:40 | CT_ITS ---
PROCEDURE INFORMATION: Exam: CTA Head With Contrast, Arteriography Exam date and time: 10/09/2025 12:14 PM Age: 75 years old Clinical indication: Stroke-like symptoms; Altered mental status/memory loss; Additional info: Altered mental status; Slurred speech TECHNIQUE: Imaging protocol: Computed tomographic angiography of the head with contrast. Exam focused on the arteries. 3D rendering (Not supervised by radiologist): MIP and/or 3D reconstructed images were created by the technologist. Radiation optimization: All CT scans at this facility use at least one of these dose optimization techniques: automated exposure control; mA and/or kV adjustment per patient size (includes targeted exams where dose is matched to clinical indication); or iterative reconstruction. Contrast material: ISOVUE; Contrast volume: 80 ml; Contrast route: INTRAVENOUS (IV); COMPARISON: CT HEAD/BRAIN WO CON 10/09/2025 12:07 PM FINDINGS: ANTERIOR CIRCULATION: Right internal carotid artery: Right cavernous carotid: Calcifications within the cavernous carotid without significant narrowing. Right middle cerebral artery: Right M1 and M2 segments: Unremarkable. Flow within the sylvian branches. Right anterior cerebral artery: Right A1 and A2 segments: Patent Left internal carotid artery: Left cavernous carotid: Calcifications within the cavernous carotid maximal area of narrowing likely 40%. Left middle cerebral artery: Left M1 and M2 segments: Patent. Flow within the sylvian branches. Left anterior cerebral artery: Left A1 and A2 segments: Unremarkable. Patent anterior communicating artery. POSTERIOR CIRCULATION: Right vertebral artery: Visualized portions of the right vertebral artery: Diminutive in size. Patent. Right posterior inferior cerebellar artery: Patent Left vertebral artery: Visualized portions of the left vertebral artery: Patent Left posterior inferior cerebellar artery: Patent Basilar artery: Patent. Diminutive in size. Right posterior cerebral artery: Right posterior cerebral artery/ P1 and P2 segments: Patent right posterior communicating artery. P1 and P2 segments are patent. Left posterior cerebral artery: Left posterior cerebral artery/P1 and P2 segments: origin. Superior cerebellar arteries: Patent Brain: In regards to the brain, no bleed mass or shift of structures. Cerebral ventricles: No ventriculomegaly. Bones/joints: Unremarkable. No acute fracture. Soft tissues: Unremarkable. Other findings: Right petrous carotid: Unremarkable. Right supraclinoid carotid: Unremarkable; Left petrous carotid: Unremarkable; Left supraclinoid carotid: Patent. IMPRESSION: Calcifications within the cavernous carotids. No filling defect. origin of the right posterior cerebral artery.
--- NOTE | 2025-10-09 10:41 | XR_ITS ---
PROCEDURE INFORMATION: Exam: XR Chest Exam date and time: 10/09/2025 12:18 PM Age: 75 years old Clinical indication: Other: AMS; Additional info: Altered mental status; Slurred speech TECHNIQUE: Imaging protocol: Radiologic exam of the chest. Views: 1 view. COMPARISON: CT ANGIO CHEST PE PROTOCOL 04/01/2025 7:07 AM FINDINGS: Lungs: Question mild left basilar airspace disease. Lungs are otherwise well aerated. Pleural spaces: Unremarkable. No pleural effusion. No pneumothorax. Heart/Mediastinum: Borderline cardiomegaly. Bones/joints: Unremarkable. IMPRESSION: mild left basilar airspace disease. Lungs are otherwise well aerated. Consider follow-up two-view chest with a greater degree of inspiration.
--- NOTE | 2025-10-09 10:48 | PC.NURSE ---
Blood sugar taken upon arrival 133
[2025-10-09 10:51] LABS: Hematocrit 42.4 % (42.0-52.0); Hemoglobin 14.4 g/dL (14.1-18.0); Immature Granulocytes % 0.8 %; Mean Corpuscular HGB Conc 34.0 g/dL (31.8-35.4); Mean Corpuscular Hemoglobin 30.3 pg (27.0-31.2); Mean Corpuscular Volume 89.3 fl (80-94); Nucleated Red Blood Cells % 0 %; Platelet Count 238 K/mm3 (142-424); Red Blood Count 4.75 M/mm3 (4.60-6.20); Red Cell Distribution Width-SD 36.8 fL; White Blood Count 5.9 K/mm3 (4.8-10.8)
--- OUTSIDE RECORDS SUMMARY | 2025-10-09 10:55 | XMS_ITS | Clinical Summary ---
Author Organization [facility] Address [address] [place] [address] Care Team Providers Care Vehicle Glass Technician Name Role Phone Kaushal Rojas MD Primary Care Provider + [phone] Active Problems Problem Noted Date Diagnosed Date [...] or (1 - 1-dose 75+ series) 2023 [id number] Vaccine ( - season) 2025 04/30/2022, 09/28/2021, [...] patient's age to complete this topic Insurance [facility] [address] [facility] [address] [id number] [facility] [place] [address] [place] Care Teams Vehicle Glass Technician Relationship Specialty Start Date End Date Kaushal Rojas MD [address] [place] [address] [place] Ol[place] [address] PCP - General 09/27/23
--- OUTSIDE RECORDS SUMMARY | 2025-10-09 10:55 | XMS_ITS | Clinical Summary ---
Author Organization [facility] Address [address] [place] [address] Phone Care Team Providers Care Housecalls Nurse Name Role Phone Unavailable Primary Care Provider [...] 75+ series) 2023 COVID-19 Vaccine (1 - 2024-2 6 season) 2025 Influenza Vaccine (#1) 2025 Hepatitis B Vaccine Aged Out No longe r eligible based on patient's age to complete this topic Meningococcal B Vaccine Aged Out No l onger eligible based on patient's age to complete this topic Insurance MEDICAID [place] MEDICARE [place] PART A AND B
--- NOTE | 2025-10-09 11:01 | HMH.EDGENADL ---
Discharge Plan Disposition Patient Disposition: Home, Self-Care Prescriptions Prescriptions: New cefdinir 300 mg capsule 300 mg PO BID 10 Days Qty: 20 0RF No Action olanzapine 5 mg tablet 5 mg PO DAILY fluvoxamine 50 mg tablet 50 mg PO HS lisinopril 5 mg tablet 5 mg PO DAILY Qty: 30 2RF metformin 500 mg tablet 500 mg PO BID Qty: 180 3RF olanzapine 10 mg tablet 10 mg PO HS acetaminophen [Acetaminophen Extra Strength] 500 mg tablet 500 mg PO Q6H PRN (Reason: fever or pain) lactulose 10 gram/15 mL solution 20 g PO DAILY PRN (Reason: Constipation) ondansetron HCl 4 mg tablet 4 mg PO Q6H PRN (Reason: nausea and vomiting) loratadine [Claritin] 10 mg tablet 10 mg PO DAILY melatonin 3 mg tablet 3 mg PO HS divalproex [Depakote Sprinkles] 125 mg capsule, delayed rel sprinkle 500 mg PO BID Qty: 120 11RF clonazepam 0.5 mg tablet 0.5 mg PO HS Qty: 30 5RF Rx Instructions: administer 30 minutes before bedtime carbidopa-levodopa 25-100 mg tablet 1 tab PO BID sennosides 8.6 mg tablet 8.6 mg PO DAILY trazodone 150 mg Tablet 150 mg PO HS Rx Instructions: Give at 9pm Acid Gone Antacid 95-358 mg/15 mL suspension 30 ml PO DAILYP PRN (Reason: Acid Reflux) Referrals Follow up/Referrals: Jenn Birmingham APRN [Primary Care Provider, Family Practice] - See instructions Activity Restrictions/Add. Instructions Additional Instructions/Restrictions: No emergent medical condition identified today aside from a urinary tract infection which may be contributory to the patient's change in mental status. Please administer the antibiotics in the assisted and return with any significant or worsening symptoms or other concerns. Clinical Impressions Clinical Impression: Acute encephalopathy, UTI (urinary tract infection) Instructions Patient Instructions: DI for Altered Mental Status Print Language Print Language: Pakistani Discharge ED Provider: Tawanda Sutherland General Adult HPI General Chief complaint: Altered Mental Status Stated complaint: stroke like symptoms Time Seen by Provider: 10/09/25 10:40 Mode of Arrival: EMS Source of Information: EMS Description of Symptoms (Recalled from ER Triage Doc. by RN): EMS states that the assisted stated that the patient would not open his eyes and was not acting himself. States that his last known well was 5pm yesterday. History of Present Illness HPI narrative: Patient is a 75-year-old male presenting today from [facility] for what they describe as changes in mental status. Patient has been documented as being minimally verbal from strokes here in our emergency department in the past but assisted on report today stated that the patient normally is awake and able to talk and be understood but today he is minimally interactive and altered and slurring his speech. Further history is unable to be obtained for the patient given the clinical status. Related Data Home Medications ?Medication ?Instructions ?Recorded ?Confirmed carbidopa 25 mg-levodopa 100 mg 1 tab PO BID tremors 06/19/23 09/29/25 tablet acetaminophen 500 mg tablet 500 mg PO Q6H PRN fever or pain 10/16/23 09/29/25 (Acetaminophen Extra Strength) lactulose 10 gram/15 mL oral 20 g PO DAILY PRN Constipation 10/16/23 09/29/25 solution loratadine 10 mg tablet (Claritin) 10 mg PO DAILY 10/16/23 09/29/25 melatonin 3 mg tablet 3 mg PO HS 10/16/23 09/29/25 ondansetron HCl 4 mg tablet 4 mg PO Q6H PRN nausea and vomiting 10/16/23 09/29/25 fluvoxamine 50 mg tablet 50 mg PO HS 11/17/24 09/29/25 aluminum hydrox-magnesium carb 95 30 ml PO DAILYP PRN Acid Reflux 04/01/25 09/29/25 mg-358 mg/15 mL oral suspension (Acid Gone Antacid) sennosides 8.6 mg tablet 8.6 mg PO DAILY 04/01/25 09/29/25 trazodone 150 mg tablet 150 mg PO HS 04/01/25 09/29/25 olanzapine 10 mg tablet 10 mg PO HS 08/24/25 09/29/25 olanzapine 5 mg tablet 5 mg PO DAILY 09/29/25 09/29/25 Previous Rx's ?Medication ?Instructions ?Recorded divalproex 125 mg capsule,delayed 500 mg (4 x 125 mg) PO BID #120 02/04/24 release sprinkle (Depakote caps Sprinkles) lisinopril 5 mg tablet 5 mg PO DAILY #30 tabs 02/15/25 metformin 500 mg tablet 500 mg PO BID #180 tabs 06/15/25 clonazepam 0.5 mg tablet 0.5 mg PO HS #30 tabs 08/28/25 cefdinir 300 mg capsule 300 mg PO BID 10 days #20 caps 10/09/25 Allergies Allergy/AdvReac Type Severity Reaction Status Date / Time gabapentin Allergy Verified 09/29/25 08:47 [facility] Disclaimer: The information contained in this section may have been updated after the patient was seen, as this information can be updated by other users. Medical History (Updated 10/09/25 @ 13:17 by Tawanda Sutherland MD) Impulse disorder Insomnia Diabetes Elevated glucose AMS (altered mental status) Sepsis Acute UTI Pneumonia Hospital discharge follow-up Severe protein-calorie malnutrition Iron deficiency anemia Sacral decubitus ulcer Impulse control disorder in adult Hypertensive disorder Hyponatremia Hyperlipemia GERD (gastroesophageal reflux disease) Affective psychosis Alzheimer disease Mood disorder Surgical History History of dental surgery H/O right hemicolectomy Family History Other No significant family history Social History Smoking Status: Unknown if ever smoked alcohol intake: never current occupational status: other Travel in the last 8 weeks?: None Have you lived/traveled outside [place] in past 30 days?: No Contact w/someone who lives/traveled outside US past 30 days?: No Exposure to someone with infectious disease in past 14 days?: No Do you have a fever (greater than 100.4 F or 38 C)?: No Have you tested positive for COVID-19?: No Exposed to someone with COVID-19 in past 14 days?: No Do you have a sore throat?: No Do you have a cough?: No Do you have any weakness?: No Do you have any diarrhea?: No Are you experiencing any unusual bleeding?: No Do you have any muscle aches/pain?: No Do you have any abdominal pain?: No Are you experiencing loss of taste or smell?: No Other Medical History Have you received the Flu Vaccine for this season: No Have you received the Pneumonia Vaccine: Yes (02/15/25) ROS Obtained: Yes All systems reviewed & no additional complaints except as documented Physical Exam General General appearance: alert Eye Eye exam: Present other (Right pupil is pinpoint left pupil is 3 mm) Respiratory Respiratory exam: Present normal lung sounds bilaterally Cardiovascular Cardiovascular exam: Present regular rate Neurological Exam Neurological exam: Present other (Patient has his eyes clenched shut is moving all extremities moaning in discomfort able to speak some and be understood but is altered unclear if this is his baseline or not) Medical Decision Making Medical Records Screening: Per USPSTF and CDC recommendations, given the prevalence of disease in our region, it is our hospital?s policy to screen for HIV and viral Hepatitis for all patients aged 18 and over and those with ongoing risk factors. Bob Inquiry Pt receiving controlled substance: No Vital Signs: 10/09/25 10:37 10/09/25 10:45 10/09/25 10:47 Temperature 98.0 F Temperature Source Oral Pulse Rate 104 H Pulse Rate [Radial] 104 H Respiratory Rate 18 Blood Pressure 142/79 H Blood Pressure [Left Arm] 142/79 H Blood Pressure Mean Blood Pressure Mean [Left Arm] 100 Blood Pressure Source [Left Arm] Automatic Cuff Blood Pressure Position [Left Arm] Supine 02 Sat by Pulse Oximetry 51 L 18 L 94 L Oxygen Delivery Method Nasal Cannula Oxygen Flow Rate (LPM) 2 10/09/25 11:00 10/09/25 11:31 10/09/25 12:30 Temperature Temperature Source Pulse Rate 97 H 60 113 H Pulse Rate [Radial] Respiratory Rate 13 16 13 Blood Pressure 144/74 H 122/54 L 146/70 H Blood Pressure [Left Arm] Blood Pressure Mean 107 Blood Pressure Mean [Left Arm] Blood Pressure Source [Left Arm] Blood Pressure Position [Left Arm] 02 Sat by Pulse Oximetry 94 L 90 L Oxygen Delivery Method Room Air Oxygen Flow Rate (LPM) 10/09/25 13:00 Temperature Temperature Source Pulse Rate 59 L Pulse Rate [Radial] Respiratory Rate 16 Blood Pressure 145/71 H Blood Pressure [Left Arm] Blood Pressure Mean 92 Blood Pressure Mean [Left Arm] Blood Pressure Source [Left Arm] Blood Pressure Position [Left Arm] 02 Sat by Pulse Oximetry 99 Oxygen Delivery Method Oxygen Flow Rate (LPM) Lab Data Lab results reviewed: Yes I reviewed the patient's lab results. Lab Results 10/09/25 10:45: WBC 5.9, RBC 4.75, Hgb 14.4, Hct 42.4, MCV 89.3, MCH 30.3, MCHC 34.0, RDW 11.5, Plt Count 238, MPV 10.1, Neut % (Auto) 52.7, Lymph % (Auto) 34.7, [place] % (Auto) 6.7, Eos % (Auto) 4.4, Baso % (Auto) 0.7, Neut # (Auto) 3.1, Lymph # (Auto) 2.1, [place] # (Auto) 0.4, Eos # (Auto) 0.3, Baso # (Auto) 0.0, Sodium 137, Potassium 4.2, Chloride 91 L, Carbon Dioxide 34 H, Anion Gap 16.2 H, BUN 8 L, Creatinine 0.60 L, Estimated Creat Clear 60, Estimated GFR 131, Est GFR ( Amer) 158, Glucose 152 H, Calcium 8.7, Total Bilirubin 0.3, AST 27, ALT 15, Alkaline Phosphatase 56, Troponin I < 0.01, Total Protein 7.9, Albumin 4.2, Globulin 3.7 H, Albumin/Globulin Ratio 1.1, HCV Ab DENEEN w/Rflx PCR Qn Negative, HIV Ag/Ab Combo Qual Negative 10/09/25 10:46: VBG pH 7.34, VBG pCO2 50.9, VBG pO2 56.2 H, VBG HCO3 26.7, VBG Total CO2 28.2 H, VBG O2 Saturation 87.4 H, VBG Base Excess 0.8, VBG Lactic Acid 4.6 H 10/09/25 12:12: Urine Color Yellow, Urine Appearance Slightly cloudy, Urine pH 7.5, Ur Specific [place] 1.010, Urine Protein Negative, Urine Glucose (UA) Negative, Urine Ketones Negative, Urine Blood 2+ A, Urine Nitrate Negative, Urine Bilirubin Negative, Urine Urobilinogen 1.0, Ur Leukocyte Esterase 2+ A, Urine RBC 5-10, Urine WBC 10-20, Ur Squamous Epith Cells Occasional, Urine Bacteria 2+ 10/09/25 10:45 10/09/25 10:45 Orders (Tests/Meds): ED MEDICATIONS Generic Name Dose Route Start Last Admin Trade Name Freq PRN Reason Stop Dose Admin Sodium Chloride 10 ml 10/09/25 12:22 10/09/25 12:23 Sodium Chloride 0.9% 10ml Syr (Rad Only) IV 11/08/25 12:21 10 ml NEEDED PRN Administration Maintain IV Site Discontinued Medications Generic Name Dose Route Start Last Admin Trade Name Wil PRN Reason Stop Dose Admin Lactated Ringer's 1,000 mls @ 999 mls/hr 10/09/25 10:45 10/09/25 13:01 Lactated Ringer's 1000 Ml Bag IV 10/09/25 11:45 Infused .Q1H1M JUDY Infusion Iopamidol 80 ml 10/09/25 12:22 10/09/25 12:23 Iopamidol-370 (76%);100ml Bottle IV 10/09/25 12:23 80 ml ONCE ONE Administration Sodium Chloride 50 ml 10/09/25 12:22 10/09/25 12:23 0.9 % Sodium Chloride 50 Ml Vial IV 10/09/25 12:23 50 ml ONCE ONE Administration ORDERS Category Date Time Status CT angio head Stat Cat Scan 10/09/25 10:[address] angio neck Stat Cat Scan 10/09/25 10:[address] head/brain wo con Stat Cat Scan 10/09/25 10:40 Completed CXR --portable [XR chest portable] Stat Exams 10/09/25 10:41 Completed CBC w/Auto Diff [Complete Blood Count Auto Diff] Stat Lab 10/09/25 10:45 Completed CMP [Comprehensive Metabolic Panel] Stat Lab 10/09/25 10:45 Completed HIV Combo Stat Lab 10/09/25 10:45 Completed Hepatitis C Ab Qual. W/ RFX Stat Lab 10/09/25 10:45 Completed Lactate Venous Stat Lab 10/09/25 10:40 Ordered Trop I [Troponin I] Stat Lab 10/09/25 10:45 Completed Troponin I Q3H Lab 10/09/25 13:45 Ordered Troponin I Q3H Lab 10/09/25 16:45 Ordered UA [Urinalysis and Microscopic] Stat Lab 10/09/25 12:12 Completed Urine Culture Stat Micro 10/09/25 12:12 Received Venous Blood Gas Stat RT 10/09/25 10:46 Completed Medical Decision Narrative: 75-year-old with above history and physical. Patient seems to be similar to presentation when I last saw him 2 years ago where he was minimally verbal. He does appear to be moving all extremities it is unlikely that this is an acute stroke. [facility] states that he was different yesterday as possibly he has some new abnormality such as urinary tract infection pneumonia electrode abnormality dehydration etc. Full workup is pending. Reassessment 1:[address] scans performed which I personally interpreted shows no evidence of acute stroke or intracranial abnormalities. Chest x-ray was performed show personal interpreted shows no evidence of pneumonia. Labs unremarkable aside from a nonspecifically elevated lactic acid no clinical signs or symptoms consistent with sepsis at this point patient is nontachycardic no leukocytosis no tachypnea or fever. There does appear to be urinary tract infection on urinalysis. Based on my note from 2 years ago his clinical assessment seems to be very similar to how he was 2 years ago. Antibiotics sent to his pharmacy. One of the nurses here in the emergency department also has worked with him in the past at the assisted and states that he is near his baseline. Therefore do not believe hospitalization or any further inpatient care is necessary in the moment that cannot be performed at the assisted. Patient was ultimately transferred back to assisted. Critical Care Critical Care Time Critical Care Time: Yes Attestation: On 10/09/25, the high probability of a clinically significant, sudden or life threatening deterioration of the following system(s) required my full and direct attention, intervention and personal management. The time I documented below is in addition to time spent performing reported procedures but includes the following listed in this critical care notation. Total Time Total Critical Care Time: 35
[2025-10-09 11:06] LABS: VBG HCO3 26.7 mmol/L (23-30); VBG PCO2 50.9 mmol/L (35-51); VBG PH 7.34 mmol/L (7.31-7.41); VBG PO2 56.2 mmol/L (28-40)
[2025-10-09 11:07] LABS: Lactate Venous 4.6 mmol/L (0.4-2.0)
--- NOTE | 2025-10-09 11:07 | PC.NURSE ---
Dr. Sutherland notified of VBG results.
[2025-10-09] MEDS: LACTATED RINGERS 1000ML 1,000 ML 999 ML IV (11:16)
[2025-10-09 11:29] LABS: Albumin Level 4.2 g/dl (3.5-5.0); Chloride 91 mmol/L (98-107); Potassium 4.2 mmoL/L (3.5-5.1); Sodium 137 mmol/L (136-145)
[2025-10-09 11:32] LABS: Alanine Aminotransferase 15 U/L (12-78); Albumin/Globulin Ratio 1.1 (1.1-1.8); Alkaline Phosphatase 56 U/L (38-126); Anion Gap 16.2 mEq/L (5-15); Aspartate Amino Transferase 27 U/L (17-59); Bilirubin,Total 0.3 mg/dl (0.2-1.3); Blood Urea Nitrogen 8 mg/dl (9-20); Calcium 8.7 mg/dl (8.4-10.2); Carbon Dioxide 34 mmol/L (22.0-30.0); Creatinine Clearance Estimated 60 mL/min (50-200); Creatinine,Serum 0.60 mg/dl (0.66-1.25); Estimated Glomerular Filt Rate 131 ml/min (>60); GFR (African American) 158 ML/MIN (>60); Globulin 3.7 g/dL (1.3-3.2); Glucose 152 mg/dl (74-100); Total Protein,Serum 7.9 g/dl (6.3-8.2)
[2025-10-09 11:45] LABS: Troponin I < 0.01 ng/ml (0.00-0.034)
[2025-10-09 12:22] LABS: Hepatitis C Ab Qual. W/ RFX NEGATIVE (Negative)
[2025-10-09] MEDS: SODIUM CHLORIDE 0.9% 10ML SYR (RAD ONLY) 10 ML IV (12:23)
[2025-10-09] MEDS: 0.9 % SODIUM CHLORIDE 50 ML VIAL IV (12:23)
[2025-10-09] MEDS: IOPAMIDOL-370 (76%);100ML BOTTLE 80 ML IV (12:23)
[2025-10-09 12:46] LABS: Microscopic, Urine URINE MICROSCOPIC (MICROSCOPIC)
[2025-10-09 12:47] LABS: Bilirubin,Urine Negative (Negative); Color,Urine YELLOW (Yellow); Glucose,Urine (UA) Negative (Negative); Ketones,Urine Negative (Negative); Leukocyte Esterase,Urine 2+ (Negative); PH,Urine 7.5 (5.0-8.5); Protein,Urine Negative (Negative); Specific Gravity, Urine 1.010 (1.005-1.030); Urobilinogen,Urine 1.0 EU/dl (0.2)
[2025-10-09 12:59] LABS: Bacteria,Urine 2+ /lpf; Squamous Epithelial Cell,Urine Occasional #/hpf (0-5)
--- NOTE | 2025-10-09 13:22 | PC.NURSE ---
Called EMS for transfer, spoke with Sean.
[2025-10-09 15:06] LABS: Reflex Lactic Add Lactic Reflex
--- NOTE | 2025-10-12 08:09 | PC.NURSE ---
Urine culture reviewed. Patient discharged on appropriate antibiotics. No further action required at this time.
== END 2025-10-09 13:52 ==
PROVIDERS: Emergency Provider Student in an Organized Health Care Education/Training Program; PCP Nurse Practitioner Family
DX: G93.49 Other encephalopathy (principal); N39.0 Urinary tract infection, site not specified; R47.81 Slurred speech; E11.9 Type 2 diabetes mellitus without complications; I10 Essential (primary) hypertension; E78.5 Hyperlipidemia, unspecified; Z79.84 Long term (current) use of oral hypoglycemic drugs; B96.4 Proteus (mirabilis) (morganii) as the cause of diseases classified elsewhere
CPT/HCPCS: 70450; 70496; 70498; 71045; 80053; 81001; 82803; 84484; 85025; 86803; 87086; 87088; 87186; 87389; 96360; 99285; J7120; Q9967

== ENCOUNTER 2025-10-15 08:23 | Outpatient (CLI) | payer MEDICARE, MEDICAID, SELFPAY ==
[2025-10-15 08:35] LABS: Hematocrit 37.0 % (42.0-52.0); Hemoglobin 12.8 g/dL (14.1-18.0); Immature Granulocytes % 0.7 %; Mean Corpuscular HGB Conc 34.6 g/dL (31.8-35.4); Mean Corpuscular Hemoglobin 30.3 pg (27.0-31.2); Mean Corpuscular Volume 87.5 fl (80-94); Nucleated Red Blood Cells % 0 %; Platelet Count 224 K/mm3 (142-424); Red Blood Count 4.23 M/mm3 (4.60-6.20); Red Cell Distribution Width-SD 36.7 fL; White Blood Count 6.1 K/mm3 (4.8-10.8)
[2025-10-15 09:28] LABS: Anion Gap 11.3 mEq/L (5-15); Blood Urea Nitrogen 7 mg/dl (9-20); Carbon Dioxide 28 mmol/L (22.0-30.0); Chloride 92 mmol/L (98-107); Creatinine,Serum 0.50 mg/dl (0.66-1.25); Potassium 4.3 mmoL/L (3.5-5.1); Sodium 127 mmol/L (136-145)
[2025-10-15 09:29] LABS: Alanine Aminotransferase 10 U/L (12-78); Albumin Level 3.9 g/dl (3.5-5.0); Albumin/Globulin Ratio 1.1 (1.1-1.8); Alkaline Phosphatase 61 U/L (38-126); Aspartate Amino Transferase 21 U/L (17-59); Bilirubin,Total 0.5 mg/dl (0.2-1.3); Calcium 8.9 mg/dl (8.4-10.2); Estimated Glomerular Filt Rate 161 ml/min (>60); GFR (African American) 195 ML/MIN (>60); Globulin 3.5 g/dL (1.3-3.2); Glucose 130 mg/dl (74-100); Total Protein,Serum 7.4 g/dl (6.3-8.2)
[2025-10-15 09:35] LABS: Valproic Acid, (Depakene) 57.7 ug/ml (50-100)
== END 2025-10-15 23:59 | disposition home or self-care (01) ==
LOC: LAB.DROPOF 08:26
PROVIDERS: PCP Nurse Practitioner Family; Visit Provider Nurse Practitioner Family
DX: F39 Unspecified mood [affective] disorder (principal)
CPT/HCPCS: 36415; 80053; 80164; 85025

== ENCOUNTER 2025-10-27 08:46 | Outpatient (CLI) | payer MEDICARE, MEDICAID, SELFPAY ==
--- OUTSIDE RECORDS SUMMARY | 2025-10-27 09:09 | XMS_ITS | Clinical Summary ---
Author Organization [facility] Address [address] [place] [address] Care Team Providers Care Emergency Technician Name Role Phone Kaushal Rojas MD Primary Care Provider + [phone] Active Problems Problem Noted Date Diagnosed Date [...] or (1 - 1-dose 75+ series) 2023 [id number] Vaccine ( - season) 2025 04/30/2022, 09/28/2021, 01/25/2021, Additional history exists [facility]-Influenza Vaccine (#1) 07/12/202509/23, 10/23/2014, 08/19/2009, Additional history exists HPV Vaccines (No Doses Required) Completed [facility]-HIB Vaccines Aged Out No longer e [...] patient's age to complete this topic Insurance [employer] [place] Care Teams Emergency Technician Relationship Specialty Start Date End Date Kaushal Rojas MD [address] [place] [address] [place] [id number] PCP - General 09/27/23
--- OUTSIDE RECORDS SUMMARY | 2025-10-27 09:09 | XMS_ITS | Clinical Summary ---
Author Organization [facility] Address [address] [place] [address] Phone Care Team Providers Care Fur Floor Worker Name Role Phone Unavailable Primary Care Provider [...] age to complete this topic Insurance [place] PART A AND B
[2025-10-27 09:51] LABS: Anion Gap 15.4 mEq/L (5-15); Blood Urea Nitrogen 8 mg/dl (9-20); Calcium 9.2 mg/dl (8.4-10.2); Carbon Dioxide 29 mmol/L (22.0-30.0); Chloride 92 mmol/L (98-107); Creatinine,Serum 0.60 mg/dl (0.66-1.25); Estimated Glomerular Filt Rate 131 ml/min (>60); GFR (African American) 158 ML/MIN (>60); Glucose 117 mg/dl (74-100); Potassium 4.4 mmoL/L (3.5-5.1); Sodium 132 mmol/L (136-145)
== END 2025-10-27 23:59 | disposition home or self-care (01) ==
LOC: LAB.DROPOF 08:46
PROVIDERS: PCP Nurse Practitioner Family; Visit Provider Nurse Practitioner Family
DX: Z00.00 Encounter for general adult medical examination without abnormal findings (principal)
CPT/HCPCS: 36415; 80048